=== PATIENT | male | born 1935 | race Caucasian/White ===

== ENCOUNTER 2017-08-06 13:44 | Observation (INO) | payer MEDICARE, MEDICAID ==
[2017-08-06] MEDS ORDERED: Sodium Chloride 0.9% 10 ML Syringe FLUSH PRN (14:19)
--- NOTE | 2017-08-06 14:19 | EDM.PDOC ---
ED HPI GENERAL MEDICAL PROBLEM - General Chief Complaint: General Stated Complaint: ER Time Seen by Provider: 08/06/17 14:10 Source of Information: Reports: Patient, EMS Notes Reviewed, RN, RN Notes Reviewed History Limitations: Reports: No Limitations - History of Present Illness INITIAL COMMENTS - FREE TEXT/NARRATIVE: Patient is brought to the ED at [facility] via EMS complaining of weakness. Patient states he fell at home last Thursday and has been feeing weak every since. He did sustain a right ankle sprain from the fall. He also is complaining of left chest and shoulder pain that he thinks is from the fall as well. He denies any LOC. No head injury or trauma. Patient denies any neck or back pain. Onset Date: 08/02/17 Right Ankle Pain Score (Numeric/FACES): 8 - Related Data Allergies Allergy/AdvReac Type Severity Reaction Status Date / Time No Known Allergies Allergy Verified 08/06/17 14:58 ED ROS GENERAL - Review of Systems Review Of Systems: See Below Constitutional: Reports: Weakness. Denies: Fever, Chills Respiratory: Denies: Shortness of Breath, Cough Cardiovascular: Denies: Chest Pain, Palpitations GI/Abdominal: Denies: Abdominal Pain, Nausea, Vomiting Musculoskeletal: Reports: Shoulder Pain, Muscle Pain, Muscle Stiffness. Denies : Neck Pain, Back Pain Neurological: Denies: Dizziness, Headache, Numbness, Paresthesia, Tingling ED EXAM, GENERAL - Physical Exam Exam: See Below Exam Limited By: No Limitations General Appearance: Alert, No Apparent Distress Eye Exam: Bilateral Eye: EOMI, Normal Inspection, PERRL Head: Atraumatic, Normocephalic Neck: Supple Respiratory/Chest: No Respiratory Distress, Decreased Breath Sounds (LLL) Cardiovascular: Normal Peripheral Pulses, Regular Rate, Rhythm Peripheral Pulses: 2+: Radial (L), Radial (R) GI/Abdominal: Normal Bowel Sounds, Soft, Non-Tender Back Exam: Normal Inspection Extremities: Normal Inspection, Pedal Edema (chronic), Limited Range of Motion ( left shoulder due to pain) Neurological: Alert, Oriented Skin Exam: Warm, Dry, Intact Course - Vital Signs Last Recorded V/S: Last Vital Signs Temp 35.8 C 08/06/17 13:55 Pulse 89 08/06/17 13:55 Resp 20 08/06/17 13:55 BP 142/81 H 08/06/17 13:55 Pulse Ox 92 L 08/06/17 13:55 - Orders/Labs/Meds Orders: Active Orders 24 hr Category Date Time Status Admission Status [Patient Status] [ADT] Routine ADT 08/06/17 15:42 Ordered Chest 2V [CR] Stat Exams 08/06/17 14:17 Taken Shoulder Comp Lt [CR] Stat Exams 08/06/17 14:16 Ordered PRO B-TYPE NATRIUR PEPT,BNPPRO [CHEM] Stat Lab 08/06/17 15:40 Ordered Sodium Chloride 0.9% [Saline Flush] Med 08/06/17 14:19 Active 10 ml FLUSH ASDIRECTED PRN Peripheral IV Insertion Adult [OM.PC] Routine Oth 08/06/17 14:19 Ordered Medication Orders Sodium Chloride (Saline Flush) 10 ml FLUSH ASDIRECTED PRN PRN Reason: Keep Vein Open Labs: Laboratory Tests 08/06/17 08/06/17 Range/Units 14:56 14:56 WBC 7.5 (4.0-10.0) x10^3/uL RBC 4.60 (4.5-6.0) x10^6/uL Hgb 14.4 (14.0-18.0) g/dL Hct 44.0 (40.0-52.0) % MCV 95.7 H (78.0-93.0) fL MCH 31.3 (26.0-32.0) pg MCHC 32.7 (32.0-36.0) g/dL RDW Coeff of Shivani 14.7 (10.0-15.0) % Plt Count 157 (130-400) x10^3/uL Neut % (Auto) 73.2 (50.0-80.0) % Lymph % (Auto) 17.2 L (25.0-50.0) % [place] % (Auto) 7.3 (2.0-11.0) % Eos % (Auto) 1.9 (0.0-4.0) % Baso % (Auto) 0.4 (0.2-1.2) % Sodium 139 (136-145) mmol/L Potassium 4.4 (3.5-5.1) mmol/L Chloride 102 (98-107) mmol/L Carbon Dioxide 26 (21-32) mmol/L Anion Gap 15.4 BUN 28 H (7-18) mg/dL Creatinine 1.9 H (0.70-1.30) mg/dL Est Cr Clr Drug Dosing 36.05 mL/min Estimated GFR (MDRD) 34 Glucose 279 H (74-106) mg/dL Calcium 8.9 (8.5-10.1) mg/dL Meds: Medications Generic Name Dose Route Start Last Admin Trade Name Freq PRN Reason Stop Dose Admin Sodium Chloride 10 ml 08/06/17 14:19 Saline Flush FLUSH ASDIRECTED PRN Keep Vein Open Departure - Departure Time of Disposition: 15:46 Disposition: Refer to Observation Condition: Fair Clinical Impression: Weakness, Hyperglycemia Clavicle fracture Qualifiers: Encounter type: initial encounter Clavicle location: unspecified part of clavicle Fracture type: closed Fracture alignment: nondisplaced Laterality: left Qualified Code(s): S42.002A - Fracture of unspecified part of left clavicle , initial encounter for closed fracture - Discharge Information - Problem List Review Problem List Initiated/Reviewed/Updated: Yes - My Orders Last 24 Hours: My Active Orders 08/06/17 14:16 Shoulder Comp Lt [CR] Stat 08/06/17 14:17 Chest 2V [CR] Stat 08/06/17 14:19 Sodium Chloride 0.9% [Saline Flush] 10 ml FLUSH ASDIRECTED PRN Peripheral IV Insertion Adult [OM.PC] Routine 08/06/17 15:40 PRO B-TYPE NATRIUR PEPT,BNPPRO [CHEM] Stat 08/06/17 15:42 Admission Status [Patient Status] [ADT] Routine - Assessment/Plan Admission H&P: Please use this note as an admission H&P Last 24 Hours: My Active Orders 08/06/17 14:16 Shoulder Comp Lt [CR] Stat 08/06/17 14:17 Chest 2V [CR] Stat 08/06/17 14:19 Sodium Chloride 0.9% [Saline Flush] 10 ml FLUSH ASDIRECTED PRN Peripheral IV Insertion Adult [OM.PC] Routine 08/06/17 15:40 PRO B-TYPE NATRIUR PEPT,BNPPRO [CHEM] Stat 08/06/17 15:42 Admission Status [Patient Status] [ADT] Routine Assessment:: Weakness Hyperglycemia Clavicle fracture Plan: Admit obs
[2017-08-06] MEDS ORDERED: Ondansetron 4 MG Tab.DIS PO PRN (16:07)
[2017-08-06] MEDS: Lactated Ringers 1,000 ML IV SCH (16:29)
--- NOTE | 2017-08-06 18:49 | PCM.HP ---
H&P History of Present Illness - General Date of Service: 08/06/17 Admit Problem/Dx: Admission Diagnosis/Problem Admission Diagnosis/Problem Weakness Hyperglycemia Left Clavicle Fracture Source of Information: Patient, EMS Notes Reviewed, Old Records, RN, RN Notes Reviewed History Limitations: Reports: No Limitations - History of Present Illness Initial Comments - Free Text/Narative: 82-year-old male patient was brought to the emergency room at [facility] earlier today by the ambulance with a chief complaint of weakness. According to the EMS crew, the patient was unable to get himself up off the couch or up from a chair, therefore they were called. The patient states that he had a fall at home last Thursday. The patient does not remember the exact mechanism of injury. The patient states that he sustained a twisting injury to the right lower ankle. The patient states that he also fell onto his left shoulder during the fall. The patient denied any head injury or trauma. The patient remembers the entire incident. The patient currently denies any chest pain or short of breath. The patient denies any abdominal pain. The patient denies any neck or back pain. The patient continues to complain of right ankle pain. The patient was seen by me in clinic 2 days ago for his complaint of right ankle pain. The patient did not complain of any shoulder pain at that time. I did obtain an x-ray of the right ankle which was negative for any fracture or dislocation. The patient was diagnosed with a right ankle sprain and was sent home from the clinic. The patient states since then he has felt more and more weak. The patient has a history of poor compliance with his diabetes regimen. The patient does get home health services with his medications and also for assessment of a healing left anterior raymond venous stasis ulcer. The patient currently lives alone in an apartment. There has been questions in the past whether or not the patient should be admitted to a correction. During the patient's emergency room visit, the patient's blood sugar was elevated in the 260s. The patient had a left shoulder x-ray which showed a possible nondisplaced fracture of the clavicle. Symptom Onset Date: 08/02/17 Duration of Symptoms: Reports: Intermittent Location: Reports: Upper Extremity, Left Quality: Reports: Dull Severity: Mild Improves with: Reports: Rest Worsens with: Reports: Movement Context: Reports: Trauma Associated Symptoms: Reports: No Other Symptoms Right Ankle Pain Score (Numeric/FACES): 8 - Related Data Allergies/Adverse Reactions: Allergies Allergy/AdvReac Type Severity Reaction Status Date / Time aspirin Allergy Other Verified 08/06/17 16:12 naproxen [From Aleve] Allergy Difficulty Verified 08/06/17 16:12 Breathing Home Medications: Home Meds Carvedilol [Coreg] 6.25 mg PO BID 08/06/17 [History] Furosemide [Lasix] 20 mg PO BID 08/06/17 [History] Ibuprofen 200 mg PO Q4H PRN 08/06/17 [History] Insulin Aspart [NovoLOG] 18 unit SQ BID 08/06/17 [History] Insulin Glargine,Hum.Rec.Anlog [[place] Solostar] 81 unit SQ BEDTIME 08/06/17 [ History] Lisinopril 20 mg PO DAILY 08/06/17 [History] Sertraline [Zoloft] 25 mg PO DAILY 08/06/17 [History] Past Medical History Cardiovascular History: Reports: CAD, High Cholesterol, Hypertension Genitourinary History: Reports: Renal Disease Psychiatric History: Reports: Dementia, Depression Endocrine/Metabolic History: Reports: Diabetes, Type II, Obesity/BMI 30+ Oncologic (Cancer) History: Reports: Squamous Cell Carcinoma Social & Family History - Family History Family Medical History: Noncontributory - Tobacco Use Smoking Status *Q: Never Smoker Second Hand Smoke Exposure: No - Recreational Drug Use Recreational Drug Use: No H&P Review of Systems - Review of Systems: Review Of Systems: See Below General: Reports: Weakness. Denies: Fever, Chills Pulmonary: Denies: Shortness of Breath, Cough Cardiovascular: Denies: Chest Pain, Palpitations Gastrointestinal: Denies: Abdominal Pain, Nausea, Vomiting Musculoskeletal: Reports: Shoulder Pain, Foot Pain, Joint Swelling, Muscle Pain , Muscle Stiffness Skin: Reports: Wound (Left anterior raymond) Neurological: Denies: Dizziness, Headache, Numbness, Paresthesia, Tingling Exam - Exam Exam: See Below - Vital Signs Vital Signs: Last Vital Signs Temp 36.3 C 08/06/17 16:07 Pulse 73 08/06/17 16:07 Resp 16 08/06/17 16:07 BP 150/67 H 08/06/17 16:07 Pulse Ox 93 L 08/06/17 16:07 Weight: 123.06 kg - Exam Quality Assessment: Skin Breakdown General: Alert, Oriented, Cooperative Lungs: Clear to Auscultation, Normal Respiratory Effort Cardiovascular: Regular Rate, Regular Rhythm GI/Abdominal Exam: Normal Bowel Sounds, Soft, Non-Tender Back Exam: Normal Inspection Extremities: Pedal Edema (bilateral), Joint Swelling (Right ankle), Redness ( Left anterior raymond) Skin: Warm, Dry, Wound (Left anterior raymond venous statis ulcer; healing well; area scabbed; no open areas; no drainage) Neuro Extensive - Mental Status: Alert, Oriented x3 - Patient Data Lab Results Last 24 hrs: Laboratory Results - last 24 hr 08/06/17 08/06/17 08/06/17 Range/Units 14:56 14:56 14:56 WBC 7.5 (4.0-10.0) x10^3/uL RBC 4.60 (4.5-6.0) x10^6/uL Hgb 14.4 (14.0-18.0) g/dL Hct 44.0 (40.0-52.0) % MCV 95.7 H (78.0-93.0) fL MCH 31.3 (26.0-32.0) pg MCHC 32.7 (32.0-36.0) g/dL RDW Coeff of Shivani 14.7 (10.0-15.0) % Plt Count 157 (130-400) x10^3/uL Neut % (Auto) 73.2 (50.0-80.0) % Lymph % (Auto) 17.2 L (25.0-50.0) % [place] % (Auto) 7.3 (2.0-11.0) % Eos % (Auto) 1.9 (0.0-4.0) % Baso % (Auto) 0.4 (0.2-1.2) % Sodium 139 (136-145) mmol/L Potassium 4.4 (3.5-5.1) mmol/L Chloride 102 (98-107) mmol/L Carbon Dioxide 26 (21-32) mmol/L Anion Gap 15.4 BUN 28 H (7-18) mg/dL Creatinine 1.9 H (0.70-1.30) mg/dL Est Cr Clr Drug Dosing 36.05 mL/min Estimated GFR (MDRD) 34 Glucose 279 H (74-106) mg/dL POC Glucose (74-106) mg/dL Calcium 8.9 (8.5-10.1) mg/dL NT-Pro-B Natriuret Pep 153 (<=450) pg/mL 08/06/17 Range/Units 17:17 WBC (4.0-10.0) x10^3/uL RBC (4.5-6.0) x10^6/uL Hgb (14.0-18.0) g/dL Hct (40.0-52.0) % MCV (78.0-93.0) fL MCH (26.0-32.0) pg MCHC (32.0-36.0) g/dL RDW Coeff of Shivani (10.0-15.0) % Plt Count (130-400) x10^3/uL Neut % (Auto) (50.0-80.0) % Lymph % (Auto) (25.0-50.0) % [place] % (Auto) (2.0-11.0) % Eos % (Auto) (0.0-4.0) % Baso % (Auto) (0.2-1.2) % Sodium (136-145) mmol/L Potassium (3.5-5.1) mmol/L Chloride (98-107) mmol/L Carbon Dioxide (21-32) mmol/L Anion Gap BUN (7-18) mg/dL Creatinine (0.70-1.30) mg/dL Est Cr Clr Drug Dosing mL/min Estimated GFR (MDRD) Glucose (74-106) mg/dL POC Glucose 235 H (74-106) mg/dL Calcium (8.5-10.1) mg/dL NT-Pro-B Natriuret Pep (<=450) pg/mL Result Diagrams: 08/06/17 14:56 08/06/17 14:56 *Q Meaningful Use (ADM) - VTE *Q VTE Mechanical Contraindications *Q: At Risk for Falls - Problem List (1) Weakness SNOMED Code(s): 31275461 ICD Code: R53.1 - WEAKNESS Status: Acute Priority: Medium Current Visit : Yes (2) Clavicle fracture SNOMED Code(s): 20115701 ICD Code: S42.009A - FRACTURE OF UNSP PART OF UNSP CLAVICLE, INIT FOR CLOS FX Status: Acute Priority: Medium Current Visit: Yes Qualifiers: Encounter type: initial encounter Clavicle location: unspecified part of clavicle Fracture type: closed Fracture alignment: nondisplaced Laterality : left Qualified Code(s): S42.002A - Fracture of unspecified part of left clavicle, initial encounter for closed fracture (3) Hyperglycemia due to type 2 diabetes mellitus SNOMED Code(s): 616044648393365, 802514722483694 ICD Code: E11.65 - TYPE 2 DIABETES MELLITUS WITH HYPERGLYCEMIA Status: Chronic Priority: Medium Current Visit: Yes Qualifiers: Diabetes mellitus exterminator helper insulin use: with exterminator helper use Qualified Code( s): E11.65 - Type 2 diabetes mellitus with hyperglycemia; Z79.4 - intermediate accountant ( current) use of insulin (4) Coronary artery disease SNOMED Code(s): 22212102 ICD Code: I25.10 - ATHSCL HEART DISEASE OF [place] CORONARY ARTERY W/O ANG PCTRS Status: Chronic Priority: Medium Current Visit: No Qualifiers: Coronary Disease-Associated Artery/Lesion type: [place] artery [place] vs. transplanted heart: [place] heart Associated angina: without angina Qualified Code(s): I25.10 - Atherosclerotic heart disease of [place] coronary artery without angina pectoris (5) Essential hypertension SNOMED Code(s): 61494608 ICD Code: I10 - ESSENTIAL (PRIMARY) HYPERTENSION Status: Chronic Priority : Low Current Visit: No (6) Dementia SNOMED Code(s): 74917935 ICD Code: F03.90 - UNSPECIFIED DEMENTIA WITHOUT BEHAVIORAL DISTURBANCE Status: Chronic Priority: Medium Current Visit: No Qualifiers: Dementia type: unspecified type Dementia behavioral disturbance: without behavioral disturbance Qualified Code(s): F03.90 - Unspecified dementia without behavioral disturbance (7) Chronic kidney disease (CKD), stage III (moderate) SNOMED Code(s): 641054005 ICD Code: N18.3 - CHRONIC KIDNEY DISEASE, STAGE 3 (MODERATE) Status: Chronic Priority: Low Current Visit: No (8) Major depressive disorder SNOMED Code(s): 272786464 ICD Code: F32.9 - MAJOR DEPRESSIVE DISORDER, SINGLE EPISODE, UNSPECIFIED Status: Acute Current Visit: Yes Qualifiers: Major depression recurrence: recurrent Active/Remission status: currently active Major depression episode severity: mild Qualified Code(s): F33.0 - Major depressive disorder, recurrent, mild Problem List Initiated/Reviewed/Updated: Yes Orders Last 24hrs: Active Orders 24 hr Category Date Time Status Patient Status [ADT] Routine ADT 08/06/17 16:07 Active Accu Check [Blood Glucose Check, Bedside] [RC] TIDMEALS Care 08/06/17 17:33 Active Ambulate [RC] 08, Care 08/06/17 16:07 Active Height and Weight [RC] .PRN Care 08/06/17 16:07 Active Intake and Output [RC] 06,18 Care 08/06/17 16:08 Active May Shower [RC] , Care 08/06/17 16:07 Active Oxygen Therapy [RC] .PRN Care 08/06/17 16:07 Active VTE/DVT Education [RC] .PRN Care 08/06/17 16:07 Active Vital Signs [RC] 02,06,10,14,18,22 Care 08/06/17 16:07 Active Consult to Case Management [CONS] Routine Cons 08/06/17 16:07 Active OT Evaluation and Treatment [CONS] Routine Cons 08/06/17 16:07 Active PT Evaluation and Treatment [CONS] Routine Cons 08/06/17 16:07 Active [employer] Diet [DIET] Diet 08/06/17 Breakfast Active Chest 2V [CR] Stat Exams 08/06/17 14:17 Taken Shoulder Comp Lt [CR] Stat Exams 08/06/17 14:16 Taken Acetaminophen [Tylenol] Med 08/06/17 16:07 Active 650 mg PO Q4H PRN Carvedilol [Coreg] Med 08/06/17 20:00 Active 6.25 mg PO BID Furosemide [Lasix] Med 08/07/17 08:00 Active 20 mg PO BIDDIURETIC Insulin Aspart [NovoLOG] Med 08/06/17 20:00 Pending 18 unit SUBCUT BID Insulin Glargine,Hum.Rec.Anlog [[place] Solostar] Med 08/06/17 20:00 Pending 81 unit SQ BEDTIME Lactated Ringers [Ringers, Lactated] 1,000 ml Med 08/06/17 16:15 Active IV ASDIRECTED Lisinopril [Prinivil] Med 08/07/17 08:00 Active 20 mg PO DAILY Ondansetron [Zofran ODT] Med 08/06/17 16:07 Active 4 mg PO Q6H PRN Sertraline [Zoloft] Med 08/07/17 08:00 Active 25 mg PO DAILY Sodium Chloride 0.9% [Saline Flush] Med 08/06/17 14:19 Active 10 ml FLUSH ASDIRECTED PRN DME for Inpatients [OM.PC] Routine Oth 08/06/17 17:53 Ordered Peripheral IV Insertion Adult [OM.PC] Routine Oth 08/06/17 14:19 Ordered Resuscitation Status Routine Resus Stat 08/06/17 17:32 Ordered Medication Orders Acetaminophen (Tylenol) 650 mg PO Q4H PRN PRN Reason: Pain (Mild 1-3)/fever Carvedilol (Coreg) 6.25 mg PO BID DIONISIO Furosemide (Lasix) 20 mg PO BIDDIURETIC DIONISIO Lactated Ringer's (Ringers, Lactated) 1,000 mls @ 75 mls/hr IV ASDIRECTED DIONISIO Last Admin: 08/06/17 16:29 Dose: 75 mls/hr Insulin Aspart (Novolog) 18 unit SUBCUT BID DIONISIO Lisinopril (Prinivil) 20 mg PO DAILY DIONISIO Non-Formulary Medication (Insulin Glargine,Hum.Rec.Anlog [Justo Palma]) 81 unit SQ BEDTIME DIONISIO Ondansetron HCl (Zofran Odt) 4 mg PO Q6H PRN PRN Reason: nausea, able to take PO Sertraline HCl (Zoloft) 25 mg PO DAILY DIONISIO Sodium Chloride (Saline Flush) 10 ml FLUSH ASDIRECTED PRN PRN Reason: Keep Vein Open Assessment/Plan Comment:: 82-year-old male patient with a past medical history of coronary artery disease , uncontrolled diabetes, dementia, chronic kidney disease, major depressive disorder is admitted to the observation unit at [facility] with a diagnosis of weakness, left clavicle fracture, and hyperglycemia. We will continue the patient on his current medications from home for his hyperglycemia. We will check blood sugars 3 times a day. Patient will be placed on an ADA diet. We will have physical and occupational therapy see this patient for his weakness and also ADLs. I do anticipate the patient to stay less than 48 hours but it also depends upon physical and occupational therapy assessments. The patient may need longer hospital stay if he needs a considerable amount of rehabilitation with therapy. The patient will be placed in a sling for his left clavicle fracture. Will gently rehydrate patient with IVF's for now. 1. Weakness - PT/OT referrals; encourage ambulation 2. Left Clavicle Fracture - left sling; PT/OT 3. Hyperglycemia - continue home insulins; ADA diet; diabetic teaching; accu checks TID 4. CAD - ADA diet; continue Coreg and Lisinopril; weight loss 5. DM - as above 6. Dementia - this is mild, currently not on any medications; monitor; possible cognitive eval with OT if warranted 7. CKD, stage III - no NSAIDS; continue Lisinopril; adequate hydration with IVF for now; control blood sugars 8. Major Depressive Disorder - continue Zoloft; possible cognitive eval per OT if warranted Patient wishes to be a no code. DVT prophylaxis risk is low so we'll encourage early ambulation. I do anticipate the patient to be here less than 48 hours, however it depends upon physical and occupational therapy evaluations. The patient does wish to be transferred to a higher level of care should the need arise. The left clavicle fracture is not all that overly impressive, therefore I do not feel the patient needs orthopedic referral at this time. We will continue to monitor.
[2017-08-06] MEDS ORDERED: Insulin Regular, Human 100 Units/ML 3 ML Vial SUBCUT SCH (20:00)
[2017-08-06] MEDS: Insulin Detemir 100 Units/ML 3 ML Pen SUBCUT SCH (20:08)
[2017-08-06] MEDS: Carvedilol 6.25 MG Tab PO SCH (20:11)
[2017-08-06] MEDS: Insulin Aspart 100 Units/ML 3 ML Pen SUBCUT SCH (20:16)
[2017-08-06] MEDS: Acetaminophen 325 MG Tab PO PRN (20:20)
[2017-08-07] MEDS: Lactated Ringers 1,000 ML IV SCH ×2 (05:48→19:10)
[2017-08-07] MEDS: Sertraline 25 MG Tab PO SCH (07:33)
[2017-08-07] MEDS: Carvedilol 6.25 MG Tab PO SCH ×2 (07:33→20:15)
[2017-08-07] MEDS: Lisinopril 20 MG Tab PO SCH (07:33)
[2017-08-07] MEDS: Furosemide 20 MG Tab PO SCH ×2 (07:33→15:54)
[2017-08-07] MEDS: Insulin Aspart 100 Units/ML 3 ML Pen SUBCUT SCH ×2 (07:38→20:21)
[2017-08-07] MEDS: Insulin Detemir 100 Units/ML 3 ML Pen SUBCUT SCH ×2 (07:40→20:19)
--- NOTE | 2017-08-07 13:40 | PCM.PN ---
- General Info Date of Service: 08/07/17 Admission Dx/Problem (Free Text): Admission Diagnosis/Problem Admission Diagnosis/Problem Weakness Hyperglycemia Left Clavicle Fracture Subjective Update: Patient offers no specific complaints today. He has minimal pain of the left shoulder. He denies any right foot or right ankle pain.the patient states his appetite has been good. The patient denies any problems with urination or bowel movements. His pain is well controlled. The patient states he feels very weak in the legs. Otherwise no new concerns. Functional Status: Reports: Pain Controlled, Tolerating Diet, Ambulating, Urinating Pain Score: 0 - Review of Systems General: Reports: Weakness, Fatigue. Denies: Fever, Chills Pulmonary: Denies: Shortness of Breath, Cough Cardiovascular: Denies: Chest Pain, Palpitations Gastrointestinal: Denies: Abdominal Pain, Nausea, Vomiting Musculoskeletal: Reports: Shoulder Pain (Left) Skin: Reports: Other (left raymond) Neurological: Denies: Dizziness, Headache - Patient Data Vitals - Most Recent: Last Vital Signs Temp 36.6 C 08/07/17 10:00 Pulse 86 08/07/17 10:00 Resp 16 08/07/17 10:00 BP 144/82 H 08/07/17 10:00 Pulse Ox 92 L 08/07/17 10:00 Weight - Most Recent: 123.06 kg I&O - Last 24 Hours: Intake & Output 08/06/17 08/07/17 08/07/17 22:59 06:59 14:59 Intake Total 340 350 420 Output Total 1200 100 Balance 340 -850 320 Lab Results Last 24 Hours: Laboratory Results - last 24 hr 08/06/17 08/06/17 08/06/17 Range/Units 14:56 14:56 14:56 WBC 7.5 (4.0-10.0) x10^3/uL RBC 4.60 (4.5-6.0) x10^6/uL Hgb 14.4 (14.0-18.0) g/dL Hct 44.0 (40.0-52.0) % MCV 95.7 H (78.0-93.0) fL MCH 31.3 (26.0-32.0) pg MCHC 32.7 (32.0-36.0) g/dL RDW Coeff of Shivani 14.7 (10.0-15.0) % Plt Count 157 (130-400) x10^3/uL Neut % (Auto) 73.2 (50.0-80.0) % Lymph % (Auto) 17.2 L (25.0-50.0) % [place] % (Auto) 7.3 (2.0-11.0) % Eos % (Auto) 1.9 (0.0-4.0) % Baso % (Auto) 0.4 (0.2-1.2) % Sodium 139 (136-145) mmol/L Potassium 4.4 (3.5-5.1) mmol/L Chloride 102 (98-107) mmol/L Carbon Dioxide 26 (21-32) mmol/L Anion Gap 15.4 BUN 28 H (7-18) mg/dL Creatinine 1.9 H (0.70-1.30) mg/dL Est Cr Clr Drug Dosing 36.05 mL/min Estimated GFR (MDRD) 34 Glucose 279 H (74-106) mg/dL POC Glucose (74-106) mg/dL Calcium 8.9 (8.5-10.1) mg/dL NT-Pro-B Natriuret Pep 153 (<=450) pg/mL 08/06/17 08/07/17 08/07/17 Range/Units 17:17 06:29 06:29 WBC 6.7 (4.0-10.0) x10^3/uL RBC 4.65 (4.5-6.0) x10^6/uL Hgb 14.6 (14.0-18.0) g/dL Hct 44.4 (40.0-52.0) % MCV 95.5 H (78.0-93.0) fL MCH 31.4 (26.0-32.0) pg MCHC 32.9 (32.0-36.0) g/dL RDW Coeff of Shivani 14.7 (10.0-15.0) % Plt Count 145 (130-400) x10^3/uL Neut % (Auto) 63.9 (50.0-80.0) % Lymph % (Auto) 25.7 (25.0-50.0) % [place] % (Auto) 8.1 (2.0-11.0) % Eos % (Auto) 1.9 (0.0-4.0) % Baso % (Auto) 0.4 (0.2-1.2) % Sodium 140 (136-145) mmol/L Potassium 4.0 (3.5-5.1) mmol/L Chloride 105 (98-107) mmol/L Carbon Dioxide 26 (21-32) mmol/L Anion Gap 13.0 BUN 25 H (7-18) mg/dL Creatinine 1.5 H (0.70-1.30) mg/dL Est Cr Clr Drug Dosing 45.67 mL/min Estimated GFR (MDRD) 45 Glucose 132 H (74-106) mg/dL POC Glucose 235 H (74-106) mg/dL Calcium 8.6 (8.5-10.1) mg/dL NT-Pro-B Natriuret Pep (<=450) pg/mL 08/07/17 08/07/17 Range/Units 07:28 11:37 WBC (4.0-10.0) x10^3/uL RBC (4.5-6.0) x10^6/uL Hgb (14.0-18.0) g/dL Hct (40.0-52.0) % MCV (78.0-93.0) fL MCH (26.0-32.0) pg MCHC (32.0-36.0) g/dL RDW Coeff of Shivani (10.0-15.0) % Plt Count (130-400) x10^3/uL Neut % (Auto) (50.0-80.0) % Lymph % (Auto) (25.0-50.0) % [place] % (Auto) (2.0-11.0) % Eos % (Auto) (0.0-4.0) % Baso % (Auto) (0.2-1.2) % Sodium (136-145) mmol/L Potassium (3.5-5.1) mmol/L Chloride (98-107) mmol/L Carbon Dioxide (21-32) mmol/L Anion Gap BUN (7-18) mg/dL Creatinine (0.70-1.30) mg/dL Est Cr Clr Drug Dosing mL/min Estimated GFR (MDRD) Glucose (74-106) mg/dL POC Glucose 132 H 202 H (74-106) mg/dL Calcium (8.5-10.1) mg/dL NT-Pro-B Natriuret Pep (<=450) pg/mL Med Orders - Current: Current Medications Acetaminophen (Tylenol) 650 mg PO Q4H PRN PRN Reason: Pain (Mild 1-3)/fever Last Admin: 08/06/17 20:20 Dose: 650 mg Carvedilol (Coreg) 6.25 mg PO BID [facility] Last Admin: 08/07/17 07:33 Dose: 6.25 mg Furosemide (Lasix) 20 mg PO BIDDIURETIC [facility] Last Admin: 08/07/17 07:33 Dose: 20 mg Lactated Ringer's (Ringers, Lactated) 1,000 mls @ 75 mls/hr IV ASDIRECTED [facility] Last Admin: 08/07/17 05:48 Dose: 75 mls/hr Insulin Aspart (Novolog) 18 unit SUBCUT BID [facility] Last Admin: 08/07/17 07:38 Dose: 18 units Insulin Detemir (Levemir) 40 unit SUBCUT BEDTIME [facility] Last Admin: 08/06/17 20:08 Dose: 40 units Insulin Detemir (Levemir) 41 unit SUBCUT QAM [facility] Last Admin: 08/07/17 07:40 Dose: 41 units Lisinopril (Prinivil) 20 mg PO DAILY [facility] Last Admin: 08/07/17 07:33 Dose: 20 mg Ondansetron HCl (Zofran Odt) 4 mg PO Q6H PRN PRN Reason: nausea, able to take PO Sertraline HCl (Zoloft) 25 mg PO DAILY [facility] Last Admin: 08/07/17 07:33 Dose: 25 mg Sodium Chloride (Saline Flush) 10 ml FLUSH ASDIRECTED PRN PRN Reason: Keep Vein Open Discontinued Medications Insulin Human Regular (Humulin R) 0 unit SUBCUT TID [facility]; Protocol - Exam Quality Assessment: DVT Prophylaxis, Skin Breakdown General: Alert, Oriented, Cooperative, No Acute Distress Lungs: Clear to Auscultation, Normal Respiratory Effort, Decreased Breath Sounds Cardiovascular: Regular Rate, Regular Rhythm GI/Abdominal Exam: Normal Bowel Sounds, Soft, Non-Tender Extremities: Pedal Edema (trace to +1 bilateral; venous stasis present) Peripheral Pulses: 1+: Posterior Tibial (L), Posterior Tibial (R), Dorsalis Pedis (L), Dorsalis Pedis (R) Skin: Warm, Dry, Intact, Other (healing venous stasis ulcer left anterior raymond; scabbs present; no evidence of infection; no drainage; areas healing well) Neurological: No New Focal Deficit - Problem List & Annotations (1) Weakness SNOMED Code(s): 95380462 Code(s): R53.1 - WEAKNESS Status: Acute Priority: Medium Current Visit : Yes (2) Clavicle fracture SNOMED Code(s): 52258999 Code(s): S42.009A - FRACTURE OF UNSP PART OF UNSP CLAVICLE, INIT FOR CLOS FX Status: Acute Priority: Medium Current Visit: Yes Qualifiers: Encounter type: initial encounter Clavicle location: unspecified part of clavicle Fracture type: closed Fracture alignment: nondisplaced Laterality : left Qualified Code(s): S42.002A - Fracture of unspecified part of left clavicle, initial encounter for closed fracture (3) Hyperglycemia due to type 2 diabetes mellitus SNOMED Code(s): 758336220259565, 125417226989500 Code(s): E11.65 - TYPE 2 DIABETES MELLITUS WITH HYPERGLYCEMIA Status: Chronic Priority: Medium Current Visit: Yes Qualifiers: Diabetes mellitus nursing home insulin use: with client liaison use Qualified Code( s): E11.65 - Type 2 diabetes mellitus with hyperglycemia; Z79.4 - terminal clerk ( current) use of insulin (4) Coronary artery disease SNOMED Code(s): 15301865 Code(s): I25.10 - ATHSCL HEART DISEASE OF [place] CORONARY ARTERY W/O ANG PCTRS Status: Chronic Priority: Medium Current Visit: No Qualifiers: Coronary Disease-Associated Artery/Lesion type: [place] artery [place] vs. transplanted heart: [place] heart Associated angina: without angina Qualified Code(s): I25.10 - Atherosclerotic heart disease of [place] coronary artery without angina pectoris (5) Essential hypertension SNOMED Code(s): 59761592 Code(s): I10 - ESSENTIAL (PRIMARY) HYPERTENSION Status: Chronic Priority : Low Current Visit: No (6) Dementia SNOMED Code(s): 43988312 Code(s): F03.90 - UNSPECIFIED DEMENTIA WITHOUT BEHAVIORAL DISTURBANCE Status: Chronic Priority: Medium Current Visit: No Qualifiers: Dementia type: unspecified type Dementia behavioral disturbance: without behavioral disturbance Qualified Code(s): F03.90 - Unspecified dementia without behavioral disturbance (7) Chronic kidney disease (CKD), stage III (moderate) SNOMED Code(s): 492616825 Code(s): N18.3 - CHRONIC KIDNEY DISEASE, STAGE 3 (MODERATE) Status: Chronic Priority: Low Current Visit: No (8) Major depressive disorder SNOMED Code(s): 637304566 Code(s): F32.9 - MAJOR DEPRESSIVE DISORDER, SINGLE EPISODE, UNSPECIFIED Status: Acute Current Visit: Yes Qualifiers: Major depression recurrence: recurrent Active/Remission status: currently active Major depression episode severity: mild Qualified Code(s): F33.0 - Major depressive disorder, recurrent, mild - Problem List Review Problem List Initiated/Reviewed/Updated: Yes - My Orders Last 24 Hours: My Active Orders 08/06/17 14:16 Shoulder Comp Lt [CR] Stat 08/06/17 14:17 Chest 2V [CR] Stat 08/06/17 14:19 Sodium Chloride 0.9% [Saline Flush] 10 ml FLUSH ASDIRECTED PRN Peripheral IV Insertion Adult [OM.PC] Routine 08/06/17 16:07 Patient Status [ADT] Routine Ambulate [RC] 08,20 Height and Weight [RC] .PRN May Shower [RC] 08,20 Oxygen Therapy [RC] .PRN VTE/DVT Education [RC] .PRN Vital Signs [RC] 02,06,10,14,18,22 Consult to Case Management [CONS] Routine OT Evaluation and Treatment [CONS] Routine PT Evaluation and Treatment [CONS] Routine Acetaminophen [Tylenol] 650 mg PO Q4H PRN Ondansetron [Zofran ODT] 4 mg PO Q6H PRN 08/06/17 16:08 Intake and Output [RC] 06,18 08/06/17 16:15 Lactated Ringers [Ringers, Lactated] 1,000 ml IV ASDIRECTED 08/06/17 17:32 Resuscitation Status Routine 08/06/17 17:33 Accu Check [Blood Glucose Check, Bedside] [RC] 07,11,1730 08/06/17 17:53 DME for Inpatients [OM.PC] Routine 08/06/17 20:00 Carvedilol [Coreg] 6.25 mg PO BID Insulin Aspart [NovoLOG] 18 unit SUBCUT BID Insulin Detemir [Levemir] 40 unit SUBCUT BEDTIME 08/07/17 08:00 Furosemide [Lasix] 20 mg PO BIDDIURETIC Insulin Detemir [Levemir] 41 unit SUBCUT QAM Lisinopril [Prinivil] 20 mg PO DAILY Sertraline [Zoloft] 25 mg PO DAILY - Assessment Assessment:: Weakness Hyperglycemia Left Clavicle fracture - Plan Plan:: 82-year-old male patient with a past medical history of coronary artery disease , uncontrolled diabetes, dementia, chronic kidney disease, major depressive disorder is admitted to the observation unit at [facility] with a diagnosis of weakness, left clavicle fracture, and hyperglycemia. We will continue the patient on his current medications from home for his hyperglycemia. We will check blood sugars 3 times a day. Patient will be placed on an ADA diet. Awaiting occupational therapy eval. Physical therapy eval completed. Physical therapy would like to rehab the patient on swing bed for one wekk. The patient may need longer hospital stay if he needs a considerable amount of rehabilitation with therapy. The patient will be placed in a sling for his left clavicle fracture. Will gently rehydrate patient with IVF's for now. 1. Weakness - rehab with PT/OT; encourage ambulation 2. Left Clavicle Fracture - left sling; PT/OT 3. Hyperglycemia - continue home insulins; ADA diet; diabetic teaching; accu checks TID 4. CAD - ADA diet; continue Coreg and Lisinopril; weight loss 5. DM - as above 6. Dementia - this is mild, currently not on any medications; monitor; possible cognitive eval with OT if warranted 7. CKD, stage III - no NSAIDS; continue Lisinopril; adequate hydration with IVF for now; control blood sugars 8. Major Depressive Disorder - continue Zoloft; possible cognitive eval per OT if warranted Patient wishes to be a no code. DVT prophylaxis risk is low so we'll encourage early ambulation. The patient will be transitioned to Swing Bed tomorrow for skilled physical therapy for approximately one week. Will reassess at that time NH vs home. The patient does wish to be transferred to a higher level of care should the need arise. The left clavicle fracture is not all that overly impressive, therefore I do not feel the patient needs orthopedic referral at this time. We will continue to monitor. Swing bed tomorrow. NOTE: This patient was seen and examined by me today as an [facility] provider.
[2017-08-08] MEDS: Acetaminophen 325 MG Tab PO PRN (05:15)
[2017-08-08] MEDS: Furosemide 20 MG Tab PO SCH (07:18)
[2017-08-08] MEDS: Lisinopril 20 MG Tab PO SCH (07:19)
[2017-08-08] MEDS: Carvedilol 6.25 MG Tab PO SCH (07:19)
[2017-08-08] MEDS: Sertraline 25 MG Tab PO SCH (07:19)
[2017-08-08] MEDS: Insulin Detemir 100 Units/ML 3 ML Pen SUBCUT SCH (07:21)
[2017-08-08] MEDS: Insulin Aspart 100 Units/ML 3 ML Pen SUBCUT SCH (07:23)
--- NOTE | 2017-08-08 08:32 | PCM.DCSUM1 ---
Discharge Summary - Hospital Course HPI Initial Comments: 82-year-old male patient was brought to the emergency room at [facility] two days ago by the ambulance with a chief complaint of weakness. According to the EMS crew, the patient was unable to get himself up off the couch or up from a chair, therefore they were called. The patient states that he had a fall at home last Thursday. The patient does not remember the exact mechanism of injury. The patient states that he sustained a twisting injury to the right lower ankle. The patient states that he also fell onto his left shoulder during the fall. The patient denied any head injury or trauma. The patient remembers the entire incident. The patient currently denies any chest pain or short of breath. The patient denies any abdominal pain. The patient denies any neck or back pain. The patient continues to complain of right ankle pain. The patient was seen by me in clinic last Thursday for his complaint of right ankle pain. The patient did not complain of any shoulder pain at that time. I did obtain an x-ray of the right ankle which was negative for any fracture or dislocation. The patient was diagnosed with a right ankle sprain and was sent home from the clinic. The patient states since then he has felt more and more weak. The patient has a history of poor compliance with his diabetes regimen. The patient does get home health services with his medications and also for assessment of a healing left anterior raymond venous stasis ulcer. The patient currently lives alone in an apartment. There has been questions in the past whether or not the patient should be admitted to a fdc. During the patient's emergency room visit, the patient's blood sugar was elevated in the 260s. The patient had a left shoulder x-ray which showed a possible nondisplaced fracture of the clavicle. - Discharge Data Discharge Date: 08/08/17 Discharge Disposition: DC/Tfer W/I Hosp To Swing 61 Condition: Good - Discharge Diagnosis/Problem(s) (1) Weakness SNOMED Code(s): 92140101 ICD Code: R53.1 - WEAKNESS Status: Acute Priority: Medium Current Visit : Yes (2) Clavicle fracture SNOMED Code(s): 92866496 ICD Code: S42.009A - FRACTURE OF UNSP PART OF UNSP CLAVICLE, INIT FOR CLOS FX Status: Acute Priority: Medium Current Visit: Yes Qualifiers: Encounter type: initial encounter Clavicle location: unspecified part of clavicle Fracture type: closed Fracture alignment: nondisplaced Laterality : left Qualified Code(s): S42.002A - Fracture of unspecified part of left clavicle, initial encounter for closed fracture (3) Hyperglycemia due to type 2 diabetes mellitus SNOMED Code(s): 377324112632576, 883129448801868 ICD Code: E11.65 - TYPE 2 DIABETES MELLITUS WITH HYPERGLYCEMIA Status: Chronic Priority: Medium Current Visit: Yes Qualifiers: Diabetes mellitus regional intermodal truck driver insulin use: with fpc use Qualified Code( s): E11.65 - Type 2 diabetes mellitus with hyperglycemia; Z79.4 - FDC ( current) use of insulin (4) Coronary artery disease SNOMED Code(s): 20565270 ICD Code: I25.10 - ATHSCL HEART DISEASE OF [place] CORONARY ARTERY W/O ANG PCTRS Status: Chronic Priority: Medium Current Visit: No Qualifiers: Coronary Disease-Associated Artery/Lesion type: [place] artery [place] vs. transplanted heart: [place] heart Associated angina: without angina Qualified Code(s): I25.10 - Atherosclerotic heart disease of [place] coronary artery without angina pectoris (5) Essential hypertension SNOMED Code(s): 19103353 ICD Code: I10 - ESSENTIAL (PRIMARY) HYPERTENSION Status: Chronic Priority : Low Current Visit: No (6) Dementia SNOMED Code(s): 19479904 ICD Code: F03.90 - UNSPECIFIED DEMENTIA WITHOUT BEHAVIORAL DISTURBANCE Status: Chronic Priority: Medium Current Visit: No Qualifiers: Dementia type: unspecified type Dementia behavioral disturbance: without behavioral disturbance Qualified Code(s): F03.90 - Unspecified dementia without behavioral disturbance (7) Chronic kidney disease (CKD), stage III (moderate) SNOMED Code(s): 776518311 ICD Code: N18.3 - CHRONIC KIDNEY DISEASE, STAGE 3 (MODERATE) Status: Chronic Priority: Low Current Visit: No (8) Major depressive disorder SNOMED Code(s): 357178609 ICD Code: F32.9 - MAJOR DEPRESSIVE DISORDER, SINGLE EPISODE, UNSPECIFIED Status: Acute Current Visit: Yes Qualifiers: Major depression recurrence: recurrent Active/Remission status: currently active Major depression episode severity: mild Qualified Code(s): F33.0 - Major depressive disorder, recurrent, mild - Patient Summary/Data Operative Procedure(s) Performed: None Consults: Consultations 08/06/17 16:07 Consult to Case Management [CONS] Routine OT Evaluation and Treatment [CONS] Routine PT Evaluation and Treatment [CONS] Routine Labs Pending at D/C: None Hospital Course: Overall, patient did well on observation. He remained hemodynamically stable. No fevers. PO intake ok. He did have one BM with clots yesterday. He is fairly weak and needs skilled PT. Labs stable. Urinating ok. Patient will be transitioned to swing bed today for further rehab with PT/OT - Patient Instructions Diet: Diabetic Diet Activity, Other: per PT/OT recommendations Driving: Do Not Drive Showering/Bathing: May Shower Notify Provider of: Fever, Increased Pain, Nausea and/or Vomiting - Discharge Plan Home Medications: Home Meds Carvedilol [Coreg] 6.25 mg PO BID 08/06/17 [History] Insulin Glargine,Hum.Rec.Anlog [Toujeo Solostar] 81 unit SQ BEDTIME 08/06/17 [ History] Lisinopril 20 mg PO DAILY 08/06/17 [History] Sertraline [Zoloft] 25 mg PO DAILY 08/06/17 [History] Acetaminophen [Tylenol] 650 mg PO Q4H PRN tablet 08/08/17 [Rx] Furosemide [Lasix] 20 mg PO BIDDIURETIC tablet 08/08/17 [Rx] Insulin Aspart [NovoLOG] 18 unit SUBCUT BID pen 08/08/17 [Rx] Ondansetron [Zofran ODT] 4 mg PO Q6H PRN tab.dis 08/08/17 [Rx] - Discharge Summary/Plan Comment DC Time >30 min.: No Discharge Summary/Plan Comment: Patient will be discharge from observation and admitted to swing bed today for further rehab with Physical and Occupational therapy. The patient's admission H& P from observation is current and active at the time of this discharge and may be used for Swing Bed. Will continue same medications and care. Will stop IVF. NOTE: This patient was seen and examined and admitted to Swing Bed by me as an [facility] provider. - General Info Date of Service: 08/08/17 Admission Dx/Problem (Free Text: Admission Diagnosis/Problem Admission Diagnosis/Problem Weakness Hyperglycemia Left Clavicle Fracture Subjective Update: Patient offers no specific complaints today. He has minimal pain of the left shoulder. He denies any right foot or right ankle pain.the patient states his appetite has been good. The patient denies any problems with urination or bowel movements. His pain is well controlled. The patient states he feels very weak in the legs. Otherwise no new concerns. Functional Status: Reports: Pain Controlled, Tolerating Diet, Ambulating, Urinating Numeric/FACES Score: 0 - Review of Systems General: Reports: Fever, Weakness, Fatigue Pulmonary: Denies: Shortness of Breath, Sputum Cardiovascular: Denies: Chest Pain, Palpitations Gastrointestinal: Denies: Abdominal Pain, Nausea, Vomiting Skin: Reports: Other (left lower raymond healing venous stasis ulcer) Neurological: Reports: Difficulty Walking, Weakness, Gait Disturbance - Patient Data Vitals - Most Recent: Last Vital Signs Temp 36.5 C 08/08/17 04:42 Pulse 83 08/08/17 07:19 Resp 20 08/08/17 04:42 BP 160/62 H 08/08/17 07:19 Pulse Ox 93 L 08/08/17 04:42 Weight - Most Recent: 123.06 kg I&O - Last 24 hours: Intake & Output 08/07/17 08/08/17 08/08/17 22:59 06:59 14:59 Intake Total 1940 1057 Output Total 400 750 Balance 1540 307 Lab Results - Last 24 hrs: Laboratory Results - last 24 hr 08/07/17 08/07/17 08/07/17 Range/Units 11:37 15:55 20:20 WBC (4.0-10.0) x10^3/uL RBC (4.5-6.0) x10^6/uL Hgb (14.0-18.0) g/dL Hct (40.0-52.0) % MCV (78.0-93.0) fL MCH (26.0-32.0) pg MCHC (32.0-36.0) g/dL RDW Coeff of Shivani (10.0-15.0) % Plt Count (130-400) x10^3/uL Neutrophils % (Manual) (50-80) % Band Neutrophils % (0-6) % Lymphocytes % (Manual) (25-50) % Monocytes % (Manual) (2-11) % Eosinophils % (Manual) (0-4) % Vacuolated Monocytes Toxic Granulation Platelet Estimate Macrocytosis Sodium (136-145) mmol/L Potassium (3.5-5.1) mmol/L Chloride (98-107) mmol/L Carbon Dioxide (21-32) mmol/L Anion Gap BUN (7-18) mg/dL Creatinine (0.70-1.30) mg/dL Est Cr Clr Drug Dosing mL/min Estimated GFR (MDRD) Glucose (74-106) mg/dL POC Glucose 202 H 234 H 248 H (74-106) mg/dL Calcium (8.5-10.1) mg/dL 08/08/17 08/08/17 Range/Units 07:20 07:20 WBC 8.2 (4.0-10.0) x10^3/uL RBC 4.59 (4.5-6.0) x10^6/uL Hgb 14.6 (14.0-18.0) g/dL Hct 43.9 (40.0-52.0) % MCV 95.6 H (78.0-93.0) fL MCH 31.8 (26.0-32.0) pg MCHC 33.3 (32.0-36.0) g/dL RDW Coeff of Shivani 14.8 (10.0-15.0) % Plt Count 152 (130-400) x10^3/uL Neutrophils % (Manual) 78 (50-80) % Band Neutrophils % 3 (0-6) % Lymphocytes % (Manual) 13 L (25-50) % Monocytes % (Manual) 5 (2-11) % Eosinophils % (Manual) 1 (0-4) % Vacuolated Monocytes 1+ slight H Toxic Granulation 1+ slight H Platelet Estimate Adequate Macrocytosis 1+ slight H Sodium 136 (136-145) mmol/L Potassium 3.8 (3.5-5.1) mmol/L Chloride 101 (98-107) mmol/L Carbon Dioxide 26 (21-32) mmol/L Anion Gap 12.8 BUN 22 H (7-18) mg/dL Creatinine 1.5 H (0.70-1.30) mg/dL Est Cr Clr Drug Dosing 45.67 mL/min Estimated GFR (MDRD) 45 Glucose 95 (74-106) mg/dL POC Glucose (74-106) mg/dL Calcium 8.2 L (8.5-10.1) mg/dL Med Orders - Current: Current Medications Acetaminophen (Tylenol) 650 mg PO Q4H PRN PRN Reason: Pain (Mild 1-3)/fever Last Admin: 08/08/17 05:15 Dose: 650 mg Carvedilol (Coreg) 6.25 mg PO BID [facility] Last Admin: 08/08/17 07:19 Dose: 6.25 mg Furosemide (Lasix) 20 mg PO BIDDIURETIC [facility] Last Admin: 08/08/17 07:18 Dose: 20 mg Lactated Ringer's (Ringers, Lactated) 1,000 mls @ 75 mls/hr IV ASDIRECTED [facility] Last Admin: 08/07/17 19:10 Dose: 75 mls/hr Insulin Aspart (Novolog) 18 unit SUBCUT BID [facility] Last Admin: 08/08/17 07:23 Dose: 18 units Insulin Detemir (Levemir) 40 unit SUBCUT BEDTIME [facility] Last Admin: 08/07/17 20:19 Dose: 40 units Insulin Detemir (Levemir) 41 unit SUBCUT QAM [facility] Last Admin: 08/08/17 07:21 Dose: 41 units Lisinopril (Prinivil) 20 mg PO DAILY [facility] Last Admin: 08/08/17 07:19 Dose: 20 mg Ondansetron HCl (Zofran Odt) 4 mg PO Q6H PRN PRN Reason: nausea, able to take PO Sertraline HCl (Zoloft) 25 mg PO DAILY [facility] Last Admin: 08/08/17 07:19 Dose: 25 mg Sodium Chloride (Saline Flush) 10 ml FLUSH ASDIRECTED PRN PRN Reason: Keep Vein Open Discontinued Medications Insulin Human Regular (Humulin R) 0 unit SUBCUT TID [facility]; Protocol - Exam Quality Assessment: Reports: Skin Breakdown General: Reports: Alert, Oriented, Cooperative, No Acute Distress Lungs: Reports: Clear to Auscultation, Normal Respiratory Effort, Decreased Breath Sounds Cardiovascular: Reports: Regular Rate, Regular Rhythm GI/Abdominal Exam: Normal Bowel Sounds, Soft, Non-Tender Extremities: Pedal Edema (+1 bilateral) Skin: Reports: Warm, Dry, Intact, Other (left anterior raymond has healing venous stasis ulcer; skin intact; no drainage) Wound/Incisions: Reports: Healing Well Neurological: Reports: No New Focal Deficit *Q Meaningful Use (DIS) - VTE *Q VTE Mechanical Contraindications *Q: At Risk for Falls
== END 2017-08-08 09:00 | disposition swing bed (61) ==
LOC: VM.ED 13:44 → VM.MS 15:42
PROVIDERS: ADMIT Nurse Practitioner Family; ATTEND Nurse Practitioner Family
DX: R53.1 Weakness (principal); S42.002A Fracture of unspecified part of left clavicle, initial encounter for closed fracture; E11.65 Type 2 diabetes mellitus with hyperglycemia; I25.10 Atherosclerotic heart disease of native coronary artery without angina pectoris; F03.90 Unspecified dementia, unspecified severity, without behavioral disturbance, psychotic disturbance, mood disturbance, and anxiety; N18.3 Chronic kidney disease, stage 3 (moderate); I12.9 Hypertensive chronic kidney disease with stage 1 through stage 4 chronic kidney disease, or unspecified chronic kidney disease; F33.0 Major depressive disorder, recurrent, mild; E78.5 Hyperlipidemia, unspecified; E11.22 Type 2 diabetes mellitus with diabetic chronic kidney disease; E66.9 Obesity, unspecified; W19.XXXA Unspecified fall, initial encounter; Z79.4 Long term (current) use of insulin; Z79.899 Other long term (current) drug therapy; Z88.6 Allergy status to analgesic agent; Z88.8 Allergy status to other drugs, medicaments and biological substances; Z68.30 Body mass index [BMI] 30.0-30.9, adult; Z85.828 Personal history of other malignant neoplasm of skin
CPT/HCPCS: 36415; 71046; 73030; 80048; 81001; 82962; 83880; 85025; 97161; 97165; 99285; A9270; J1815; J7120; 96360; 96361; G0378

== ENCOUNTER 2017-08-08 09:00 | Inpatient (IN) | payer MEDICARE, MEDICAID ==
[~2017-08-08 09:00] MED LIST: Ondansetron 4 MG Tab.DIS PO PRN
[2017-08-08] MEDS: Furosemide 20 MG Tab (OWN SUPPLY) PO SCH (15:07)
[2017-08-08] MEDS: Insulin Aspart 100 Units/ML 3 ML Pen SUBCUT SCH (17:25)
[2017-08-08] MEDS ORDERED: INSULIN ASPART 100 UNIT/ML SUBCUT SCH (18:00)
[2017-08-08] MEDS: Acetaminophen 325 MG Tab PO PRN (19:35)
[2017-08-08] MEDS: TOUJEO 300 UNIT/ML SUBCUT SCH (19:35)
[2017-08-08] MEDS ORDERED: Insulin Detemir 100 Units/ML 3 ML Pen SUBCUT SCH (20:00)
[2017-08-09] MEDS: SERTRALINE 25 MG PO SCH (07:22)
[2017-08-09] MEDS: Furosemide 20 MG Tab (OWN SUPPLY) PO SCH ×2 (07:22→15:54)
[2017-08-09] MEDS: Insulin Aspart 100 Units/ML 3 ML Pen SUBCUT SCH ×2 (07:25→17:02)
[2017-08-09] MEDS: Sodium Chloride 0.9% 10 ML Syringe FLUSH PRN ×2 (07:28→19:44)
[2017-08-09] MEDS: Acetaminophen 325 MG Tab PO PRN (17:05)
[2017-08-09] MEDS: TOUJEO 300 UNIT/ML SUBCUT SCH (19:52)
[2017-08-10] MEDS: SERTRALINE 25 MG PO SCH (07:39)
[2017-08-10] MEDS: Acetaminophen 325 MG Tab PO PRN ×2 (07:39→17:22)
[2017-08-10] MEDS: Furosemide 20 MG Tab (OWN SUPPLY) PO SCH ×2 (07:40→17:22)
[2017-08-10] MEDS: Insulin Aspart 100 Units/ML 3 ML Pen SUBCUT SCH (07:40)
[2017-08-10] MEDS: NOVOLOG SUBCUT SCH (17:46)
[2017-08-10] MEDS: TOUJEO 300 UNIT/ML SUBCUT SCH (20:49)
[2017-08-11] MEDS: SERTRALINE 25 MG PO SCH (08:34)
[2017-08-11] MEDS: Furosemide 20 MG Tab (OWN SUPPLY) PO SCH ×2 (08:35→18:04)
[2017-08-11] MEDS: NOVOLOG SUBCUT SCH ×2 (08:36→18:04)
[2017-08-11] MEDS: Loperamide 2 MG Cap PO PRN ×2 (12:09→20:28)
[2017-08-11] MEDS: TOUJEO 300 UNIT/ML SUBCUT SCH ×2 (20:23→20:34)
[2017-08-12] MEDS: Furosemide 20 MG Tab (OWN SUPPLY) PO SCH (07:36)
[2017-08-12] MEDS: SERTRALINE 25 MG PO SCH (07:36)
[2017-08-12] MEDS: NOVOLOG SUBCUT SCH (07:37)
--- NOTE | 2017-08-12 13:54 | PCM.DCSUM1 ---
Discharge Summary - Hospital Course HPI Initial Comments: 82-year-old male patient was brought to the emergency room on 08/06/2017 at [facility] by the ambulance with a chief complaint of weakness. According to the EMS crew, the patient was unable to get himself up off the couch or up from a chair, therefore they were called. The patient states that he had a fall at home last Thursday. The patient does not remember the exact mechanism of injury. The patient states that he sustained a twisting injury to the right lower ankle. The patient states that he also fell onto his left shoulder during the fall. The patient denied any head injury or trauma. The patient remembers the entire incident. The patient had denied any chest pain or short of breath. The patient denied any abdominal pain. The patient denied any neck or back pain. The patient had continued complains of right ankle pain. The patient was seen by me in clinic 08/04/2017 for his complaint of right ankle pain. The patient did not complain of any shoulder pain at that time. I did obtain an x-ray of the right ankle which was negative for any fracture or dislocation. The patient was diagnosed with a right ankle sprain and was sent home from the clinic. The patient states since then he has felt more and more weak. The patient has a history of poor compliance with his diabetes regimen. The patient does get home health services with his medications and also for assessment of a healing left anterior raymond venous stasis ulcer. The patient currently lives alone in an apartment. There has been questions in the past whether or not the patient should be admitted to a alf. During the patient's emergency room visit, the patient's blood sugar was elevated in the 260s. The patient had a left shoulder x-ray which showed a possible nondisplaced fracture of the clavicle. Patient was admitted to observation on 08/06/2017. He continued to be very weak, so physical therapy continued to work with patient. - Discharge Data Discharge Date: 08/12/17 Discharge Disposition: Home, Self-Care 01 Condition: Fair - Discharge Diagnosis/Problem(s) (1) Weakness SNOMED Code(s): 90258313 ICD Code: R53.1 - WEAKNESS Status: Resolved Priority: Medium Current Visit: Yes (2) Clavicle fracture SNOMED Code(s): 21038723 ICD Code: S42.009A - FRACTURE OF UNSP PART OF UNSP CLAVICLE, INIT FOR CLOS FX Status: Acute Priority: Medium Current Visit: Yes Qualifiers: Encounter type: initial encounter Clavicle location: unspecified part of clavicle Fracture type: closed Fracture alignment: nondisplaced Laterality : left Qualified Code(s): S42.002A - Fracture of unspecified part of left clavicle, initial encounter for closed fracture (3) Hyperglycemia SNOMED Code(s): 22798423 ICD Code: R73.9 - HYPERGLYCEMIA, UNSPECIFIED Status: Resolved Priority: Medium Current Visit: Yes (4) Coronary artery disease SNOMED Code(s): 97413074 ICD Code: I25.10 - ATHSCL HEART DISEASE OF [place] CORONARY ARTERY W/O ANG PCTRS Status: Chronic Priority: Medium Current Visit: No Qualifiers: Coronary Disease-Associated Artery/Lesion type: [place] artery [place] vs. transplanted heart: [place] heart Associated angina: without angina Qualified Code(s): I25.10 - Atherosclerotic heart disease of [place] coronary artery without angina pectoris (5) Dementia SNOMED Code(s): 41302285 ICD Code: F03.90 - UNSPECIFIED DEMENTIA WITHOUT BEHAVIORAL DISTURBANCE Status: Chronic Priority: Medium Current Visit: No Qualifiers: Dementia type: unspecified type Dementia behavioral disturbance: without behavioral disturbance Qualified Code(s): F03.90 - Unspecified dementia without behavioral disturbance (6) Essential hypertension SNOMED Code(s): 73833414 ICD Code: I10 - ESSENTIAL (PRIMARY) HYPERTENSION Status: Chronic Priority : Low Current Visit: No (7) Chronic kidney disease (CKD), stage III (moderate) SNOMED Code(s): 659287467 ICD Code: N18.3 - CHRONIC KIDNEY DISEASE, STAGE 3 (MODERATE) Status: Chronic Priority: Low Current Visit: No - Patient Summary/Data Operative Procedure(s) Performed: None Consults: Consultations 08/07/17 16:43 OT Evaluation and Treatment [CONS] Routine 08/08/17 08:00 PT Evaluation and Treatment [CONS] Routine Labs Pending at D/C: None Recommended Follow-up Testing/Procedures: None Planned Operative Procedure(s) after DC: None Hospital Course: Patient remained hemodynamically stable and afebrile during his SB stay. Blood sugars are under much better control. Patient did not have any issues with his left clavicle fracture. Patient did not have any problems with urination and BM' s. Pain under good control. Tolerated PO fluids well. Weakness much improved over the past couple of days. - Patient Instructions Diet: Diabetic Diet Activity: No Strenuous Activities, Rest and Relax Today Driving: Do Not Drive Showering/Bathing: May Shower Notify Provider of: Fever, Increased Pain, Nausea and/or Vomiting - Discharge Plan Home Medications: Home Meds Carvedilol [Coreg] 6.25 mg PO BID 08/06/17 [History] Insulin Glargine,Hum.Rec.Anlog [Toujeo Solostar] 81 unit SQ BEDTIME 08/06/17 [ History] Lisinopril 20 mg PO DAILY 08/06/17 [History] Sertraline [Zoloft] 25 mg PO DAILY 08/06/17 [History] Acetaminophen [Tylenol] 650 mg PO Q4H PRN tablet 08/08/17 [Rx] Furosemide [Lasix] 20 mg PO BIDDIURETIC tablet 08/08/17 [Rx] Insulin Aspart [NovoLOG] 18 unit SUBCUT BID pen 08/08/17 [Rx] Ondansetron [Zofran ODT] 4 mg PO Q6H PRN tab.dis 08/08/17 [Rx] Patient Handouts: Type 1 Diabetes Mellitus, Diagnosis, Adult, Weakness, Easy-to -Read Referrals: Navya Emmanuel DO [Primary Care Provider] - - Discharge Summary/Plan Comment DC Time >30 min.: Yes Discharge Summary/Plan Comment: Patient will be discharge home today. No changes with any home medications is necessary. Will continue with home health as previously ordered by PCP. Recommend follow up with PCP in one week for a hospital discharge follow up. - General Info Date of Service: 08/12/17 Admission Dx/Problem (Free Text: Weakness Hyperglycemia Deconditing Subjective Update: Patient offers no specific complaints at time of discharge. He states he is feeling well. No chest pain or SOB. He states his legs feel good and much stronger. Denies any abdominal pain. No N/V/D. Numeric/FACES Score: 0 - Review of Systems General: Denies: Fever, Weakness, Chills Pulmonary: Denies: Shortness of Breath, Cough Cardiovascular: Denies: Chest Pain, Palpitations Gastrointestinal: Denies: Abdominal Pain, Nausea, Vomiting Skin: Reports: No Symptoms Neurological: Denies: Dizziness, Headache - Patient Data Vitals - Most Recent: Last Vital Signs Temp 36.8 C 08/12/17 06:00 Pulse 98 08/12/17 06:00 Resp 20 08/12/17 06:00 BP 155/80 H 08/12/17 06:00 Pulse Ox 98 08/12/17 06:00 Weight - Most Recent: 110.79 kg I&O - Last 24 hours: Intake & Output 08/11/17 08/12/17 08/12/17 22:59 06:59 14:59 Intake Total 240 800 Balance 240 800 Lab Results - Last 24 hrs: Laboratory Results - last 24 hr 08/11/17 08/11/17 08/12/17 Range/Units 17:13 20:32 06:35 POC Glucose 174 H 139 H 101 (74-106) mg/dL 08/12/17 Range/Units 11:36 POC Glucose 105 (74-106) mg/dL OLIVA Results - Last 24 hrs: Microbiology 08/11/17 12:30 Clostridium difficile (PCR) - Final Stool / Feces Med Orders - Current: Current Medications Acetaminophen (Tylenol) 650 mg PO Q4H PRN PRN Reason: Pain (Mild 1-3)/fever Last Admin: 08/10/17 17:22 Dose: 650 mg Carvedilol (Coreg) 6.25 mg PO BID REPLACED BY [facility] Last Admin: 08/12/17 07:36 Dose: 6.25 mg Furosemide (Lasix) 20 mg PO BIDDIURETIC REPLACED BY [facility] Last Admin: 08/12/17 07:36 Dose: 20 mg Lisinopril (Prinivil) 20 mg PO DAILY REPLACED BY [facility] Last Admin: 08/12/17 07:36 Dose: 20 mg Loperamide HCl (Imodium) 2 mg PO Q4H PRN PRN Reason: Diarrhea Last Admin: 08/11/17 20:28 Dose: 2 mg Toujeo 300 Units/Ml ((Own Supply)) 0 units SUBCUT BEDTIME REPLACED BY [facility] Last Admin: 08/11/17 20:34 Dose: 81 units Novolog (Own Supply) 0 units SUBCUT BIDMEALS REPLACED BY [facility] Last Admin: 08/12/17 07:37 Dose: 18 units Ondansetron HCl (Zofran Odt) 4 mg PO Q6H PRN PRN Reason: nausea, able to take PO Sertraline HCl (Zoloft) 25 mg PO DAILY REPLACED BY [facility] Last Admin: 08/12/17 07:36 Dose: 25 mg Sodium Chloride (Saline Flush) 10 ml FLUSH ASDIRECTED PRN PRN Reason: Keep Vein Open Last Admin: 08/09/17 19:44 Dose: 10 ml Discontinued Medications Insulin Aspart (Novolog) 18 unit SUBCUT BIDMEALS REPLACED BY [facility] Insulin Aspart (Novolog) 18 unit SUBCUT BIDMEALS REPLACED BY [facility] Last Admin: 08/10/17 07:40 Dose: 18 units PtomToujeo 300 (Units/Ml) 0 each SUBCUT BEDTIME REPLACED BY [facility] Last Admin: 08/11/17 20:23 Dose: 81 each - Exam General: Reports: Alert, Oriented, Cooperative, No Acute Distress Lungs: Reports: Clear to Auscultation, Normal Respiratory Effort, Decreased Breath Sounds Cardiovascular: Reports: Regular Rate, Regular Rhythm GI/Abdominal Exam: Normal Bowel Sounds, Soft, Non-Tender Skin: Reports: Warm, Dry, Intact, Other (Healed venous stasis ulcer left anterior raymond) Wound/Incisions: Reports: Healing Well (left anterior raymond) Neurological: Reports: No New Focal Deficit *Q Meaningful Use (DIS) - VTE *Q VTE Mechanical Contraindications *Q: At Risk for Falls
== END 2017-08-12 15:25 | disposition home or self-care (01) | DRG 948 ==
LOC: VM.MS 09:00 → UNDOADMIN 09:00 → UNDODISIN 08-12 15:25
PROVIDERS: ADMIT Nurse Practitioner Family; ATTEND Nurse Practitioner Family
DX: R53.1 Weakness (principal); L97.829 Non-pressure chronic ulcer of other part of left lower leg with unspecified severity; M25.571 Pain in right ankle and joints of right foot; I87.8 Other specified disorders of veins; S42.002A Fracture of unspecified part of left clavicle, initial encounter for closed fracture; W19.XXXA Unspecified fall, initial encounter; I25.10 Atherosclerotic heart disease of native coronary artery without angina pectoris; F03.90 Unspecified dementia, unspecified severity, without behavioral disturbance, psychotic disturbance, mood disturbance, and anxiety; I12.9 Hypertensive chronic kidney disease with stage 1 through stage 4 chronic kidney disease, or unspecified chronic kidney disease; N18.3 Chronic kidney disease, stage 3 (moderate); E11.65 Type 2 diabetes mellitus with hyperglycemia; E11.22 Type 2 diabetes mellitus with diabetic chronic kidney disease; F32.9 Major depressive disorder, single episode, unspecified; Z79.4 Long term (current) use of insulin; Z91.81 History of falling; Z79.899 Other long term (current) drug therapy
CPT/HCPCS: 82274; 82962; 87493; 97110-GP; 97116-GP; 97530-GP; 97535-GO; A9270-GY; J7050

== ENCOUNTER 2019-04-16 23:45 | Emergency (ER) | payer MEDICARE, MEDICAID ==
--- NOTE | 2019-04-17 02:19 | EDM.PDOC ---
ED HPI GENERAL MEDICAL PROBLEM - General Chief Complaint: General Stated Complaint: Fall, Evulsion of right eye lid, knee pain Time Seen by Provider: 04/16/19 23:45 Source of Information: Reports: Patient, EMS, [facility] Records History Limitations: Reports: No Limitations - History of Present Illness INITIAL COMMENTS - FREE TEXT/NARRATIVE: Pt. presents to ER via EMS. Pt. states that he fell in his room at the senior living, striking his head/face on a towel bar and breaking it, sustaining a laceration to his R eyelid. He landed on his R knee as well. Denies any LOC. No midline c-spine pain on arrival to ED. Pt. denies any chest pain or shortness of breath. No lightheadedness. No nausea , vomiting, or diarrhea. No vertigo. Onset Date: 04/16/19 Location: Reports: Head, Face, Lower Extremity, Right Right knee Pain Score (Numeric/FACES): 3 - Related Data Allergies Allergy/AdvReac Type Severity Reaction Status Date / Time aspirin Allergy Other Verified 04/17/19 11:17 naproxen [From Aleve] Allergy Difficulty Verified 04/17/19 11:17 Breathing Home Meds: Home Meds carvediloL [Coreg] 6.25 mg PO BID 08/06/17 [History] Aspirin [Halfprin] 81 mg PO DAILY 03/30/18 [History] Cephalexin [Keflex] 500 mg PO BID 03/30/18 [History] Furosemide [Lasix] 20 mg PO BID 03/30/18 [History] Insulin Glarg,Human.Rec.Analog [Lantus Solostar] 32 units SUBCUT DAILY 03/30/18 [History] Potassium Chloride 20 meq PO DAILY 03/30/18 [History] Sertraline [Zoloft] 50 mg PO DAILY 03/30/18 [History] Spironolactone 50 mg PO DAILY 03/30/18 [History] Insulin Aspart [NovoLOG] 0 unit SQ TIDMEALS 03/31/18 [History] Insulin Aspart [NovoLOG] 0 unit SUBCUT BEDTIME 03/31/18 [History] Magnesium Chloride 140 mg PO DAILY 03/31/18 [History] Past Medical History HEENT History: Reports: Other (See Below) Other HEENT History: wears glasses Cardiovascular History: Reports: CAD, High Cholesterol, Hypertension Genitourinary History: Reports: Renal Disease, Other (See Below) Other Genitourinary History: CKD III Psychiatric History: Reports: Dementia, Depression Endocrine/Metabolic History: Reports: Diabetes, Type II, Obesity/BMI 30+ Oncologic (Cancer) History: Reports: Squamous Cell Carcinoma Dermatologic History: Reports: Other (See Below) Other Dermatologic History: diabetic ulcers - Past Surgical History Male Surgical History: Reports: None Social & Family History - Family History Family Medical History: Noncontributory - Caffeine Use Caffeine Use: Reports: Coffee ED ROS GENERAL - Review of Systems Review Of Systems: See Below Constitutional: Reports: No Symptoms HEENT: Reports: Other (5 cm laceration/avusion to eyelid. Numerous other small abrasions/lacerations to nose/face.) Respiratory: Reports: No Symptoms Cardiovascular: Reports: No Symptoms Endocrine: Reports: No Symptoms GI/Abdominal: Reports: No Symptoms : Reports: No Symptoms Musculoskeletal: Reports: Leg Pain Skin: Reports: No Symptoms Neurological: Reports: No Symptoms Psychiatric: Reports: No Symptoms Hematologic/Lymphatic: Reports: No Symptoms Immunologic: Reports: No Symptoms ED EXAM, GENERAL - Physical Exam Exam: See Below Exam Limited By: No Limitations General Appearance: Alert, WD/WN, No Apparent Distress Eye Exam: Right Eye: Other (5 cm skin tear to R eyelid), Bilateral Eye: EOMI, PERRL Ears: Normal External Exam, Normal Canal, Hearing Grossly Normal, Normal TMs Ear Exam: Bilateral Ear: Auricle Normal, Canal Normal, TM normal Nose: Normal Inspection, Normal Mucosa, No Blood Throat/Mouth: Normal Inspection, Normal Lips, Normal Teeth, Normal Gums, Normal Oropharynx, Normal Voice, No Airway Compromise Head: Facial Tenderness Neck: Normal Inspection, Supple, Non-Tender, Full Range of Motion Respiratory/Chest: No Respiratory Distress, Lungs Clear, Normal Breath Sounds, No Accessory Muscle Use, Chest Non-Tender Cardiovascular: Normal Peripheral Pulses, Regular Rate, Rhythm, No Edema, No Gallop, No JVD, No Murmur, No Rub Peripheral Pulses: 4+: Radial (L) GI/Abdominal: Normal Bowel Sounds, Soft, Non-Tender, No Organomegaly, No Distention, No Mass (Male) Exam: Deferred Rectal (Males) Exam: Deferred Back Exam: Normal Inspection, Full Range of Motion Extremities: Other (abrasion to R knee. No obvious deformity) Neurological: Alert, Oriented, CN II-XII Intact, Normal Cognition, Normal Gait, Normal Reflexes, No Motor/Sensory Deficits Psychiatric: Normal Affect, Normal Mood Skin Exam: Warm, Dry, Intact, Normal Color, No Rash Lymphatic: No Adenopathy Course - Vital Signs Last Recorded V/S: Last Vital Signs Temp 36.1 C 04/16/19 23:45 Pulse 108 H 04/16/19 23:45 Resp 16 04/16/19 23:45 BP 118/88 04/16/19 23:45 Pulse Ox 90 L 04/16/19 23:45 Departure - Departure Time of Disposition: 01:00 Disposition: DC/Tfer to SNF 03 Clinical Impression: Facial laceration, Knee contusion - Discharge Information Instructions: Concussion, Adult, [id number], Laceration Care, Adult, Contusion, [id number] Referrals: PCP,Unobtain [Primary Care Provider] - Forms: ED Department Discharge Additional Instructions: CT scans and x-rays are all negative for fracture. Keep the laceration to his R eyelid dry for 24 hours. Have the patient sleep with his head elevated, as this will decrease facial swelling tomorrow. Tylenol as needed for pain. Sepsis Event Note - Evaluation Sepsis Screening Result: No Definite Risk - Focused Exam Vital Signs: Vital Signs Temp Pulse Resp BP Pulse Ox 04/16/19 23:45 36.1 C 108 H 16 118/88 90 L Date Exam was Performed: 04/17/19 Time Exam was Performed: 11:16 - Assessment/Plan Plan: CT scans and x-rays are all negative for fracture. Keep the laceration to his R eyelid dry for 24 hours. Have the patient sleep with his head elevated, as this will decrease facial swelling tomorrow. Tylenol as needed for pain.
--- NOTE | 2019-04-17 07:39 | CT ---
[id number] CT/CT Head WO IV EXAM: CT Head WO IV CLINICAL DATA: FALL,STRUCK HEAD FACE. COMPARISON STUDY: March 2018. FINDINGS: No intracranial hemorrhage, extra-axial fluid collection, mass, or acute ischemia. Posterior right frontal lobe encephalomalacia. 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 No significant change from prior examination. Paranasal sinuses and mastoid air cells are clear. IMPRESSION: No acute intracranial findings. Other findings are described above. David Wolf MD 04/17/19 0738 Thank you for allowing us to participate in the care of your patient.
--- NOTE | 2019-04-17 07:47 | CT ---
[id number] CT/CT Facial Bones WO IV Exam: CT Facial Bones WO IV Indication:FALL STRUCK HEAD FACE. Comparison: No prior imaging for comparison. Discussion: Small right frontal scalp contusion. No underlying frontal bone fracture. No facial bone fracture identified. Linear lucency along the edge of the [id number] at the base of the odontoid process (series 4 image 58 and series 5 image 40). No prior imaging is available for comparison or correlation. Mild mucosal thickening in the left mastoid air cells. Paranasal sinuses are clear. Impression: Right frontal scalp contusion without underlying frontal bone fracture. No acute facial bone fracture. Nondisplaced fracture at the base of the odontoid process at C2. Lack of marginal cortication suggests possible acute fracture, especially in the setting of trauma. Consider cervical spine CT for further evaluation. Results relayed to ER staff at 0743 hours on today's date. David Wolf MD 04/17/19 [id number] Thank you for allowing us to participate in the care of your patient.
--- NOTE | 2019-04-17 08:16 | CR ---
[id number] RAD/RAD Knee Right 1-2V Exam: RAD Knee Right 1-2V Indication:FALL ONTO KNEE. R Comparison: No prior imaging for comparison. 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 Joint effusion with osteochondral bodies and mineralized debris/synovitis most prominent in the suprapatellar recess, where there is a 31 mm osteochondral body in its lateral aspect. No evidence of an acute fracture or dislocation. Impression: No acute findings. Chronic findings are described above. David Wolf MD 04/17/19 0815 Thank you for allowing us to participate in the care of your patient.
== END 2019-04-17 01:50 ==
LOC: VM.ED 23:45
DX: S01.111A Laceration without foreign body of right eyelid and periocular area, initial encounter (principal); S01.21XA Laceration without foreign body of nose, initial encounter; S80.01XA Contusion of right knee, initial encounter; I12.9 Hypertensive chronic kidney disease with stage 1 through stage 4 chronic kidney disease, or unspecified chronic kidney disease; N18.3 Chronic kidney disease, stage 3 (moderate); E11.22 Type 2 diabetes mellitus with diabetic chronic kidney disease; I25.10 Atherosclerotic heart disease of native coronary artery without angina pectoris; E11.622 Type 2 diabetes mellitus with other skin ulcer; L98.499 Non-pressure chronic ulcer of skin of other sites with unspecified severity; E66.9 Obesity, unspecified; F03.90 Unspecified dementia, unspecified severity, without behavioral disturbance, psychotic disturbance, mood disturbance, and anxiety; F32.9 Major depressive disorder, single episode, unspecified; E78.00 Pure hypercholesterolemia, unspecified; Z68.31 Body mass index [BMI] 31.0-31.9, adult; Z79.4 Long term (current) use of insulin; Z79.82 Long term (current) use of aspirin; Z79.899 Other long term (current) drug therapy; Z88.6 Allergy status to analgesic agent; W01.198A Fall on same level from slipping, tripping and stumbling with subsequent striking against other object, initial encounter; Y93.01 Activity, walking, marching and hiking; Y92.128 Other place in nursing home as the place of occurrence of the external cause
CPT/HCPCS: 12013; 70450; 70486; 73560-RT; 99284-GF; 99285-25

== ENCOUNTER 2019-04-17 10:58 | Emergency (ER) | payer MEDICARE, MEDICAID ==
--- NOTE | 2019-04-17 11:56 | CT ---
[id number] CT/CT Cervical Spine WO IV EXAM: CT Cervical Spine WO IV INDICATION: FELL. COMPARISON: None. DISCUSSION: At the base of the odontoid process there is a linear lucency. Findings are seen best on sagittal series 5 images 32 and 37 and series 4 images 29-31. With history of recent fall and lack of cortication at the margins of the lucency, findings are concerning for acute nondisplaced fracture. No extension into the lateral masses. No other evidence of acute fracture the cervical spine. Advanced changes of spondylosis, including both degenerative disc disease and facet joint arthropathy are seen. 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 IMPRESSION: Linear lucency at the base of the odontoid process of C2, concerning for an acute nondisplaced type I fracture. Results relayed to Manuel Romano at time of dictation. David Wolf MD 04/17/19 [id number] Thank you for allowing us to participate in the care of your patient.
--- NOTE | 2019-04-18 05:06 | EDM.PDOC ---
ED HPI GENERAL MEDICAL PROBLEM - General Chief Complaint: Neck Problem Time Seen by Provider: 04/17/19 11:05 Source of Information: Reports: Patient, Alf Records - History of Present Illness INITIAL COMMENTS - FREE TEXT/NARRATIVE: Was informed by [facility] that there was evidence of a possible odontoid fx. noted on one of the CT scans performed the night before. Radiologist suggested a dedicated cervical spine CT. Pt. was subsequently brought back to ED via EMS. Pt. did report some increased discomfort in his neck overnight. He did not have any significant discomfort last night. Pt. denies any numbness or tingling. No other focal neuro symptoms. Onset Date: 04/17/19 Location: Reports: Neck Quality: Reports: [employer]: Reports: Cervical Collar - Related Data Allergies Allergy/AdvReac Type Severity Reaction Status Date / Time aspirin Allergy Other Verified 04/17/19 11:17 naproxen [From Aleve] Allergy Difficulty Verified 04/17/19 11:17 Breathing Home Meds: Home Meds carvediloL [Coreg] 6.25 mg PO BID 08/06/17 [History] Aspirin [Halfprin] 81 mg PO DAILY 03/30/18 [History] Furosemide [Lasix] 20 mg PO BID 03/30/18 [History] Insulin Glarg,Human.Rec.Analog [Lantus Solostar] 60 units SUBCUT DAILY 03/30/18 [History] Sertraline [Zoloft] 50 mg PO DAILY 03/30/18 [History] Spironolactone 50 mg PO DAILY 03/30/18 [History] Insulin Aspart [NovoLOG] 10 unit SQ TIDMEALS 03/31/18 [History] Acetaminophen 650 mg PO TID 04/17/19 [History] Past Medical History HEENT History: Reports: Other (See Below) Other HEENT History: wears glasses Cardiovascular History: Reports: CAD, High Cholesterol, Hypertension Genitourinary History: Reports: Renal Disease, Other (See Below) Other Genitourinary History: CKD III Psychiatric History: Reports: Dementia, Depression Endocrine/Metabolic History: Reports: Diabetes, Type II, Obesity/BMI 30+ Oncologic (Cancer) History: Reports: Squamous Cell Carcinoma Dermatologic History: Reports: Other (See Below) Other Dermatologic History: diabetic ulcers - Past Surgical History Male Surgical History: Reports: None Social & Family History - Family History Family Medical History: Noncontributory - Tobacco Use Smoking Status *Q: Never Smoker - Caffeine Use Caffeine Use: Reports: Coffee - Recreational Drug Use Recreational Drug Use: No ED ROS GENERAL - Review of Systems Review Of Systems: See Below Constitutional: Reports: No Symptoms HEENT: Reports: No Symptoms Respiratory: Reports: No Symptoms Cardiovascular: Reports: No Symptoms Endocrine: Reports: No Symptoms GI/Abdominal: Reports: No Symptoms : Reports: No Symptoms Musculoskeletal: Reports: Neck Pain Skin: Reports: No Symptoms Neurological: Reports: No Symptoms. Denies: Confusion, Dizziness, Headache, Numbness, Paresthesia, Seizure, Tingling, Tremors, Trouble Speaking, Difficulty Walking, Weakness, Change in Speech, Gait Disturbance Psychiatric: Reports: No Symptoms Hematologic/Lymphatic: Reports: No Symptoms Immunologic: Reports: No Symptoms ED EXAM, GENERAL - Physical Exam Exam: See Below Exam Limited By: No Limitations General Appearance: Alert, WD/WN, No Apparent Distress Neck: Normal Inspection, Supple, Tender Lateral, Tender Midline Respiratory/Chest: No Respiratory Distress, Lungs Clear, Normal Breath Sounds, No Accessory Muscle Use, Chest Non-Tender Cardiovascular: Normal Peripheral Pulses, Regular Rate, Rhythm, No Edema, No Gallop, No JVD, No Murmur, No Rub GI/Abdominal: Soft, Non-Tender, No Organomegaly, No Distention, No Abnormal Bruit, No Mass Extremities: Normal Inspection, Normal Range of Motion, Non-Tender, No Pedal Edema, Normal Capillary Refill Neurological: Alert, Oriented, CN II-XII Intact, Normal Cognition, Normal Gait, Normal Reflexes, No Motor/Sensory Deficits Course - Vital Signs Last Recorded V/S: Last Vital Signs Temp 36.8 C 04/17/19 10:58 Pulse 90 04/17/19 10:58 Resp 16 04/17/19 10:58 BP 131/74 04/17/19 10:58 Pulse Ox 94 L 04/17/19 10:58 - Radiology Interpretation Free Text/Narrative:: CT cervical spine obtained and showed possible acute odontoid fx Departure - Departure Time of Disposition: 12:42 Disposition: Home, Self-Care 01 Clinical Impression: Odontoid fracture - Discharge Information Instructions: Cervical Spine Fracture, Stable Referrals: PCP,Unknown [Primary Care Provider] - Forms: ED Department Discharge Additional Instructions: Keep c-collar on at all times. [facility]. He will need to wear a collar for approx. 6 weeks. Start calcium +D supplement. I spoke with Dr. Miller who would like to see you in the clinic in 4 weeks. Sepsis Event Note - Evaluation Sepsis Screening Result: No Definite Risk - Assessment/Plan Plan: Keep c-collar on at all times. We will call [facility] to get a permanent collar for placement tomorrow. He will need to wear a collar for approx. 6 weeks. Start calcium +D supplement. I spoke with Dr. Miller who would like to see you in the clinic in 4 weeks.
== END 2019-04-17 12:43 | disposition home or self-care (01) ==
LOC: VM.ED 10:58
DX: S12.112A Nondisplaced Type II dens fracture, initial encounter for closed fracture (principal); E11.22 Type 2 diabetes mellitus with diabetic chronic kidney disease; I12.9 Hypertensive chronic kidney disease with stage 1 through stage 4 chronic kidney disease, or unspecified chronic kidney disease; N18.3 Chronic kidney disease, stage 3 (moderate); I25.10 Atherosclerotic heart disease of native coronary artery without angina pectoris; E78.00 Pure hypercholesterolemia, unspecified; E66.9 Obesity, unspecified; F03.90 Unspecified dementia, unspecified severity, without behavioral disturbance, psychotic disturbance, mood disturbance, and anxiety; F32.9 Major depressive disorder, single episode, unspecified; Z68.31 Body mass index [BMI] 31.0-31.9, adult; Z79.4 Long term (current) use of insulin; Z79.82 Long term (current) use of aspirin; Z79.899 Other long term (current) drug therapy; Z88.6 Allergy status to analgesic agent; W19.XXXA Unspecified fall, initial encounter
CPT/HCPCS: 72125; 99284-25; 99284-GF

== ENCOUNTER 2019-11-13 08:16 | Emergency (ER) | payer MEDICARE, MEDICAID ==
[2019-11-13] MEDS ORDERED: Phenazopyridine 95 MG Tab PO STA (09:03)
[2019-11-13] MEDS ORDERED: Cephalexin 500 MG Cap PO ONE (09:03)
--- NOTE | 2019-11-13 09:23 | EDM.PDOC ---
ED HPI GENERAL MEDICAL PROBLEM - General Chief Complaint: Genitourinary Problem Stated Complaint: LETHARGIC Time Seen by Provider: 11/13/19 09:08 Source of Information: Reports: Patient History Limitations: Reports: No Limitations - History of Present Illness INITIAL COMMENTS - FREE TEXT/NARRATIVE: [facility] with complaints o f generalized weakness and urinary frequency. He reports that ever since March he is has generalized weakness that is gotten worse over the past few days. This is been exacerbated by his need to go to the bathroom constantly to urinate. He has no dysuria but does have urinary frequency denies hematuria. He is continent of urine on a regular basis. No fever no chills. No abdominal pain nausea or vomiting. No diarrhea black or tarry stools. No chest pain no shortness of breath or difficulty breathing. No fever no chills. No COVID exposure. No COVID complaints. NO Chest pain no shortness of breath. NO dizziness or palpitations. - Related Data Allergies Allergy/AdvReac Type Severity Reaction Status Date / Time aspirin Allergy Other Verified 11/13/19 08:37 naproxen [From Aleve] Allergy Difficulty Verified 11/13/19 08:37 Breathing Home Meds: Home Meds carvediloL [Coreg] 6.25 mg PO BID 08/06/17 [History] Aspirin [Halfprin] 81 mg PO DAILY 03/30/18 [History] Furosemide [Lasix] 20 mg PO BID 03/30/18 [History] Insulin Glarg,Human.Rec.Analog [Lantus Solostar] 60 units SUBCUT DAILY 03/30/18 [History] Sertraline [Zoloft] 100 mg PO DAILY 03/30/18 [History] Spironolactone 50 mg PO DAILY 03/30/18 [History] Insulin Aspart [NovoLOG] 10 unit SQ TIDMEALS 03/31/18 [History] Acetaminophen 650 mg PO TID 04/17/19 [History] Acetaminophen [Tylenol] 650 mg PO TID 11/13/19 [History] Zinc Oxide [Desitin Creamy Diaper Rash Crm] 1 appful TOP BID 11/13/19 [History] traMADol [Ultram] 50 mg PO BID 11/13/19 [History] Past Medical History HEENT History: Reports: Other (See Below) Other HEENT History: wears glasses Cardiovascular History: Reports: CAD, High Cholesterol, Hypertension Genitourinary History: Reports: Renal Disease, Other (See Below) Other Genitourinary History: CKD III Psychiatric History: Reports: Dementia, Depression Endocrine/Metabolic History: Reports: Diabetes, Type II, Obesity/BMI 30+ Oncologic (Cancer) History: Reports: Squamous Cell Carcinoma Dermatologic History: Reports: Other (See Below) Other Dermatologic History: diabetic ulcers - Past Surgical History Male Surgical History: Reports: None Social & Family History - Family History Family Medical History: Noncontributory - Tobacco Use Smoking Status *Q: Never Smoker - Caffeine Use Caffeine Use: Reports: Coffee - Recreational Drug Use Recreational Drug Use: No ED ROS GENERAL - Review of Systems Review Of Systems: Comprehensive ROS is negative, except as noted in HPI. ED EXAM, RENAL/ - Physical Exam Exam: See Below Exam Limited By: No Limitations General Appearance: Alert, WD/WN, No Apparent Distress Respiratory/Chest: No Respiratory Distress, Lungs Clear Cardiovascular: Normal Peripheral Pulses, Regular Rate, Rhythm GI/Abdominal: Normal Bowel Sounds, Soft, Non-Tender (Male) Exam: Deferred Rectal (Males) Exam: Deferred Back Exam: Normal Inspection Extremities: Pedal Edema (1+ bilaterally. ) Neurological: Alert, Oriented, Normal Cognition, No Motor/Sensory Deficits Psychiatric: Normal Affect, Normal Mood Skin Exam: Warm, Dry, Intact, Normal Color, No Rash Course - Vital Signs Last Recorded V/S: Last Vital Signs Temp 97.7 F 11/13/19 08:20 Pulse 103 H 11/13/19 08:20 Resp 20 11/13/19 08:20 BP 148/83 H 11/13/19 08:20 Pulse Ox 95 11/13/19 08:20 - Orders/Labs/Meds Orders: Active Orders 24 hr Category Date Time Status EKG Documentation Completion [RC] STAT Care 11/13/19 09:21 Active CULTURE URINE [RM] Stat Lab 11/13/19 07:30 Received Labs: Laboratory Tests 11/13/19 11/13/19 11/13/19 Range/Units 07:30 09:20 09:20 WBC 8.0 (4.0-10.0) x10^3/uL RBC 4.50 (4.5-6.0) x10^6/uL Hgb 12.7 L (14.0-18.0) g/dL Hct 39.7 L (40.0-52.0) % MCV 88.2 (78.0-93.0) fL MCH 28.2 (26.0-32.0) pg MCHC 32.0 (32.0-36.0) g/dL RDW Coeff of Shivani 15.3 H (10.0-15.0) % Plt Count 181 (130-400) x10^3/uL Add Manual Diff Yes Neutrophils % (Manual) 70 (50-80) % Band Neutrophils % 4 (0-6) % Lymphocytes % (Manual) 14 L (25-50) % Monocytes % (Manual) 7 (2-11) % Metamyelocytes % 4 H (0) % Myelocytes % 1 H (0) % Platelet Estimate Adequate Giant Platelets Rare H Anisocytosis 1+ slight H Sodium 133 L (136-145) mmol/L Potassium 5.7 H (3.5-5.1) mmol/L Chloride 102 (98-107) mmol/L Carbon Dioxide 21 (21-32) mmol/L Anion Gap 15.7 (10-20) mmol/L BUN 51 H (7-18) mg/dL Creatinine 2.5 H (0.70-1.30) mg/dL Est Cr Clr Drug Dosing TNP Estimated GFR (MDRD) 25 Glucose 152 H (74-106) mg/dL Lactic Acid (0.4-2.0) mmol/L Calcium 8.3 L (8.5-10.1) mg/dL Troponin I (<=0.056) ng/mL Urine Color Yellow (YELLOW) Urine Appearance Turbid H (CLEAR) Urine pH 5.5 (5.0-8.0) Ur Specific [place] >=1.030 Urine Protein >=300 H (NEGATIVE) mg/dL Urine Glucose (UA) Negative (NEGATIVE) mg/dL Urine Ketones Negative (NEGATIVE) mg/dL Urine Occult Blood Large H (NEGATIVE) Urine Nitrite Negative (NEGATIVE) Urine Bilirubin Negative (NEGATIVE) Urine Urobilinogen 0.2 (0.2) EU/dL Ur Leukocyte Esterase Large H (NEGATIVE) Urine RBC 40-50 H (NOT SEEN) /HPF Urine WBC >100 H (NOT SEEN) /HPF Ur Squamous Epith Cells Occasional H (NEGATIVE) /HPF Amorphous Sediment Few Urine Bacteria Few H (NEGATIVE) /HPF Urine Mucus Few H (NEGATIVE) /LPF 11/13/19 11/13/19 Range/Units 09:20 09:20 WBC (4.0-10.0) x10^3/uL RBC (4.5-6.0) x10^6/uL Hgb (14.0-18.0) g/dL Hct (40.0-52.0) % MCV (78.0-93.0) fL MCH (26.0-32.0) pg MCHC (32.0-36.0) g/dL RDW Coeff of Shivani (10.0-15.0) % Plt Count (130-400) x10^3/uL Add Manual Diff Neutrophils % (Manual) (50-80) % Band Neutrophils % (0-6) % Lymphocytes % (Manual) (25-50) % Monocytes % (Manual) (2-11) % Metamyelocytes % (0) % Myelocytes % (0) % Platelet Estimate Giant Platelets Anisocytosis Sodium (136-145) mmol/L Potassium (3.5-5.1) mmol/L Chloride (98-107) mmol/L Carbon Dioxide (21-32) mmol/L Anion Gap (10-20) mmol/L BUN (7-18) mg/dL Creatinine (0.70-1.30) mg/dL Est Cr Clr Drug Dosing Estimated GFR (MDRD) Glucose (74-106) mg/dL Lactic Acid 1.7 (0.4-2.0) mmol/L Calcium (8.5-10.1) mg/dL Troponin I < 0.017 (<=0.056) ng/mL Urine Color (YELLOW) Urine Appearance (CLEAR) Urine pH (5.0-8.0) Ur Specific [place] Urine Protein (NEGATIVE) mg/dL Urine Glucose (UA) (NEGATIVE) mg/dL Urine Ketones (NEGATIVE) mg/dL Urine Occult Blood (NEGATIVE) Urine Nitrite (NEGATIVE) Urine Bilirubin (NEGATIVE) Urine Urobilinogen (0.2) EU/dL Ur Leukocyte Esterase (NEGATIVE) Urine RBC (NOT SEEN) /HPF Urine WBC (NOT SEEN) /HPF Ur Squamous Epith Cells (NEGATIVE) /HPF Amorphous Sediment Urine Bacteria (NEGATIVE) /HPF Urine Mucus (NEGATIVE) /LPF Meds: Medications Discontinued Medications Generic Name Dose Route Start Last Admin Trade Name Sabra PRN Reason Stop Dose Admin Cephalexin 500 mg 11/13/19 09:03 11/13/19 09:13 Keflex PO 11/13/19 09:04 500 mg ONETIME ONE Administration Phenazopyridine HCl 95 mg 11/13/19 09:03 11/13/19 09:14 Urinary Pain Relief PO 11/13/19 09:04 95 mg NOW STA Administration - Re-Assessments/Exams Free Text/Narrative Re-Assessment/Exam: 11/13/19 12:29 His urine is clearly infectious. We will culture his urine. His creat is at baseline. No signs of sepsis. WBC normal and lactic normal as well. Cephalexin 1 tablet now and pyridium. [facility]. Departure - Departure Time of Disposition: 10:02 Disposition: Home, Self-Care 01 Clinical Impression: UTI, Urinary tract infectious disease - Discharge Information Referrals: Navya Emmanuel DO [Primary Care Provider] - Forms: ED Department Discharge Additional Instructions: PUsh oral fluids. Continue with previous therapies. Cephalexin 500mg, 1 tab by mouth 4 times a day for the next 7days. Recheck PRN. Update PCP of the current UTI. Sepsis Event Note (ED) - Evaluation Sepsis Screening Result: No Definite Risk - Focused Exam Vital Signs: Vital Signs Temp Pulse Resp BP Pulse Ox 11/13/19 08:20 97.7 F 103 H 20 148/83 H 95 - My Orders Last 24 Hours: My Active Orders 11/13/19 07:30 CULTURE URINE [RM] Stat 11/13/19 09:21 EKG Documentation Completion [RC] STAT - Assessment/Plan Last 24 Hours: My Active Orders 11/13/19 07:30 CULTURE URINE [RM] Stat 11/13/19 09:21 EKG Documentation Completion [RC] STAT Assessment:: UTI Chronic Renal Failure. Plan: PUsh oral fluids. Continue with previous therapies. Cephalexin 500mg, 1 tab by mouth 4 times a day for the next 7days. Recheck PRN. Update PCP of the current UTI.
[2019-11-13 09:52] LABS: CHLORIDE,CL 102 mmol/L (98-107); SODIUM,NA 133 mmol/L (136-145)
[2019-11-13 09:53] LABS: ANION GAP 15.7 mmol/L (10-20)
== END 2019-11-13 10:15 | disposition home or self-care (01) ==
LOC: VM.ED 08:16
DX: N39.0 Urinary tract infection, site not specified (principal); I25.10 Atherosclerotic heart disease of native coronary artery without angina pectoris; I12.9 Hypertensive chronic kidney disease with stage 1 through stage 4 chronic kidney disease, or unspecified chronic kidney disease; E11.22 Type 2 diabetes mellitus with diabetic chronic kidney disease; N18.3 Chronic kidney disease, stage 3 (moderate); F32.9 Major depressive disorder, single episode, unspecified; E66.9 Obesity, unspecified; Z79.82 Long term (current) use of aspirin; Z79.4 Long term (current) use of insulin; Z79.899 Other long term (current) drug therapy; Z88.6 Allergy status to analgesic agent; Z88.8 Allergy status to other drugs, medicaments and biological substances
CPT/HCPCS: 36415; 80048; 81001; 83605; 84484; 85025; 87086; 93005; 99283; 99285; A9270

== ENCOUNTER 2020-04-08 09:35 | Emergency (ER) | payer MEDICARE, MEDICAID ==
[2020-04-08] MEDS ORDERED: Lidocaine 2% HCl 11 ML Jelly Filled Syringe TOP ONE (10:23)
--- NOTE | 2020-04-08 10:38 | EDM.PDOC ---
ED HPI GENERAL MEDICAL PROBLEM - General Chief Complaint: Genitourinary Problem Time Seen by Provider: 04/08/20 09:41 Source of Information: Reports: Patient, Retirement Records - History of Present Illness INITIAL COMMENTS - FREE TEXT/NARRATIVE: [place] is an 85 y/o male who [facility] for blood clots coming from his urethra. He was up at 0200 and voided normally, then at 0400 his Attends was full of clots, this happened again around 0800 and [facility] staff sent him here to be seen. He denies any pain and has overall felt well. He denies ever having this happen before. He has had UTIs in the past. No fevers. Neck Pain Score (Numeric/FACES): 1 - Related Data Allergies Allergy/AdvReac Type Severity Reaction Status Date / Time aspirin Allergy Other Verified 04/08/20 09:53 naproxen [From Aleve] Allergy Difficulty Verified 04/08/20 09:53 Breathing Home Meds: Home Meds carvediloL [Coreg] 6.25 mg PO BID 08/06/17 [History] Aspirin [Halfprin] 81 mg PO DAILY 03/30/18 [History] Furosemide [Lasix] 20 mg PO BID 03/30/18 [History] Insulin Glarg,Human.Rec.Analog [Lantus Solostar] 60 units SUBCUT DAILY 03/30/18 [History] Sertraline [Zoloft] 100 mg PO DAILY 03/30/18 [History] Spironolactone 50 mg PO DAILY 03/30/18 [History] Insulin Aspart [NovoLOG] 10 unit SQ TIDMEALS 03/31/18 [History] Acetaminophen 650 mg PO TID 04/17/19 [History] Acetaminophen [Tylenol] 650 mg PO TID 11/13/19 [History] Zinc Oxide [Desitin Creamy Diaper Rash Crm] 1 appful TOP BID 11/13/19 [History] traMADol [Ultram] 50 mg PO BID 11/13/19 [History] Past Medical History HEENT History: Reports: Other (See Below) Other HEENT History: wears glasses Cardiovascular History: Reports: CAD, High Cholesterol, Hypertension Genitourinary History: Reports: Renal Disease, Other (See Below) Other Genitourinary History: CKD III Psychiatric History: Reports: Dementia, Depression Endocrine/Metabolic History: Reports: Diabetes, Type II, Obesity/BMI 30+ Oncologic (Cancer) History: Reports: Squamous Cell Carcinoma Dermatologic History: Reports: Other (See Below) Other Dermatologic History: diabetic ulcers - Past Surgical History Male Surgical History: Reports: None Social & Family History - Family History Family Medical History: No Pertinent Family History - Tobacco Use Tobacco Use Status *Q: Unknown Ever Used Tobacco - Caffeine Use Caffeine Use: Reports: Coffee Review of Systems - Review of Systems Review Of Systems: See Below Constitutional: Reports: No Symptoms Eyes: Reports: No Symptoms Ears: Reports: No Symptoms Nose: Reports: No Symptoms Mouth/Throat: Reports: No Symptoms Respiratory: Reports: No Symptoms Cardiovascular: Reports: No Symptoms GI/Abdominal: Reports: No Symptoms Genitourinary: Reports: Hematuria, Other (Blood clots noted in urethra) Musculoskeletal: Reports: No Symptoms Skin: Reports: No Symptoms Neurological: Reports: No Symptoms Psychiatric: Reports: No Symptoms ED EXAM, GENERAL - Physical Exam Exam: See Below Exam Limited By: No Limitations General Appearance: Alert, WD/WN, No Apparent Distress (Elderly male, pleasant.) Eye Exam: Bilateral Eye: PERRL Ears: Hearing Grossly Normal Nose: Normal Inspection Throat/Mouth: Normal Inspection, Normal Voice Head: Atraumatic, Normocephalic Neck: Normal Inspection Respiratory/Chest: No Respiratory Distress, Lungs Clear, Chest Non-Tender Cardiovascular: Normal Peripheral Pulses, Regular Rate, Rhythm GI/Abdominal: Normal Bowel Sounds, Soft, Non-Tender, No Distention (Male) Exam: Urethral Discharge (note about 50 ml of blood clots in Attends on exam, foreskin is tight and unable to be retracted) Rectal (Males) Exam: Deferred Back Exam: Normal Inspection Extremities: Normal Inspection Neurological: Alert, Oriented, CN II-XII Intact, Normal Cognition Psychiatric: Normal Affect, Normal Mood Skin Exam: Warm, Dry, Intact, Normal Color Lymphatic: No Adenopathy Course - Vital Signs Text/Narrative:: 0941 The patient was seen by the DIRECTOR OF PUBLIC WORKS. Labs ordered. RN attempted to cath patient, but unable. Noted more blood clots coming from urethra. 1020 Urojet Lidocaine placed and [employer]OR OF [employer] assisted RN with slater placement. Noted very tight foreskin that could not be retracted. Slater was placed and dark bloody urine noted in slater drainage system. Irrigated with 500ml of saline and urine did lighten up, but then started to get dark, wilfredo blood colored in the tubing. 1100 Labs reviewed. Note Hgb=11.3, Hct=35.5. Eysmkw=201, Potassium=5.2 (decreased from 5.7 on 11-13-19), BUN=45, Home Health Aide=2.1. Ceftriaxone 1 gm IVP ordered to treat UTI. Urine cx pending. 1114 [facility] contacted and case presented to ER physician, Dr Conrad. Patient accepted for transfer to [facility]; awaiting room assignment. Will plan on [facility] transporting the patient to [place]. Patient remained stable until departing the ER with EMS. Last Recorded V/S: Last Vital Signs Temp 36.2 C 04/08/20 09:35 Pulse 92 04/08/20 09:35 Resp 18 04/08/20 09:35 BP 108/63 04/08/20 09:35 Pulse Ox 94 L 04/08/20 09:35 - Orders/Labs/Meds Orders: Active Orders 24 hr Category Date Time Status Bladder Irrigation [RC] BID Care 04/08/20 10:45 Active Slater Catheter Insertion [Insert Urinary Catheter] [OM. Care 04/08/20 10:45 Ordered PC] Q24H Urinary Catheter Assessment [RC] ASDIRECTED Care 04/08/20 10:45 Active CULTURE URINE [RM] Stat Lab 04/08/20 10:37 Received Labs: Laboratory Tests 04/08/20 04/08/20 04/08/20 Range/Units 10:17 10:17 10:37 WBC 6.8 (4.0-10.0) x10^3/uL RBC 4.03 L (4.5-6.0) x10^6/uL Hgb 11.3 L (14.0-18.0) g/dL Hct 35.5 L (40.0-52.0) % MCV 88.1 (78.0-93.0) fL MCH 28.0 (26.0-32.0) pg MCHC 31.8 L (32.0-36.0) g/dL RDW Coeff of Shivani 15.3 H (10.0-15.0) % Plt Count 149 (130-400) x10^3/uL Add Manual Diff Yes Neutrophils % (Manual) 63 (50-80) % Band Neutrophils % 1 (0-6) % Lymphocytes % (Manual) 27 (25-50) % Monocytes % (Manual) 7 (2-11) % Eosinophils % (Manual) 2 (0-4) % Platelet Estimate Adequate Spherocytes 1+ slight H Sodium 133 L (136-145) mmol/L Potassium 5.2 H (3.5-5.1) mmol/L Chloride 102 (98-107) mmol/L Carbon Dioxide 22 (21-32) mmol/L Anion Gap 14.2 (10-20) mmol/L BUN 45 H (7-18) mg/dL Creatinine 2.1 H (0.70-1.30) mg/dL Est Cr Clr Drug Dosing TNP Estimated GFR (MDRD) 30 Glucose 288 H (74-106) mg/dL Calcium 8.4 L (8.5-10.1) mg/dL Corrected Calcium 9.12 (8.5-10.1) mg/dL Total Bilirubin 0.2 (0.2-1.0) mg/dL AST 10 L (15-37) U/L ALT 15 L (16-63) U/L Alkaline Phosphatase 77 (46-116) U/L Total Protein 6.7 (6.4-8.2) g/dL Albumin 3.1 L (3.4-5.0) g/dL Globulin 3.6 Albumin/Globulin Ratio 0.86 Urine Color Red H (YELLOW) Urine Appearance Turbid H (CLEAR) Urine pH 8.5 H (5.0-8.0) Ur Specific [place] 1.010 Urine Protein >=300 H (NEGATIVE) mg/dL Urine Glucose (UA) 100 H (NEGATIVE) mg/dL Urine Ketones 40 H (NEGATIVE) mg/dL Urine Occult Blood Large H (NEGATIVE) Urine Nitrite Positive H (NEGATIVE) Urine Bilirubin Large H (NEGATIVE) Urine Urobilinogen 4.0 H (0.2) EU/dL Ur Leukocyte Esterase Large H (NEGATIVE) Urine RBC Packed H (NOT SEEN) /HPF Urine WBC Not seen (NOT SEEN) /HPF Ur Squamous Epith Cells Not seen (NEGATIVE) /HPF Amorphous Sediment Not seen Urine Bacteria Not seen (NEGATIVE) /HPF Urine Mucus Not seen (NEGATIVE) /LPF Meds: Medications Discontinued Medications Generic Name Dose Route Start Last Admin Trade Name Freq PRN Reason Stop Dose Admin Ceftriaxone Sodium 1 gm 04/08/20 11:17 04/08/20 11:29 Rocephin IVPUSH 04/08/20 11:18 1 gm STAT ONE Administration Lidocaine HCl 11 ml 04/08/20 10:23 Glydo TOP 04/08/20 10:24 ONETIME ONE Departure - Departure Time of Disposition: 11:25 Disposition: DC/Tfer to Acute Hospital 02 Condition: Good Clinical Impression: Gross hematuria UTI (urinary tract infection) Qualifiers: Urinary tract infection type: site unspecified Hematuria presence: with hematuria Qualified Code(s): N39.0 - Urinary tract infection, site not specified; R31.9 - Hematuria, unspecified - Discharge Information Referrals: Navya Emmanuel DO [Primary Care Provider] - Forms: ED Department Discharge, ED Return to Work/School Form, Interfacility Transfer EMTALA Additional Instructions: -Transfer to [facility] via [facility] Sepsis Event Note (ED) - Evaluation Sepsis Screening Result: No Definite Risk - Focused Exam Vital Signs: Vital Signs Temp Pulse Resp BP Pulse Ox 04/08/20 09:35 36.2 C 92 18 108/63 94 L - My Orders Last 24 Hours: My Active Orders 04/08/20 10:37 CULTURE URINE [RM] Stat 04/08/20 10:45 Bladder Irrigation [RC] BID Slater Catheter Insertion [Insert Urinary Catheter] [OM.PC] Q24H Urinary Catheter Assessment [RC] ASDIRECTED - Assessment/Plan Last 24 Hours: My Active Orders 04/08/20 10:37 CULTURE URINE [RM] Stat 04/08/20 10:45 Bladder Irrigation [RC] BID Slater Catheter Insertion [Insert Urinary Catheter] [OM.PC] Q24H Urinary Catheter Assessment [RC] ASDIRECTED
[2020-04-08 10:47] LABS: CHLORIDE,CL 102 mmol/L (98-107); SODIUM,NA 133 mmol/L (136-145)
[2020-04-08 10:58] LABS: ANION GAP 14.2 mmol/L (10-20)
[2020-04-08] MEDS ORDERED: cefTRIAXone 1 GM Vial IVPUSH ONE (11:17)
== END 2020-04-08 12:52 | disposition short-term general hospital (02) ==
LOC: VM.ED 09:35
DX: N39.0 Urinary tract infection, site not specified (principal); R31.0 Gross hematuria; I12.9 Hypertensive chronic kidney disease with stage 1 through stage 4 chronic kidney disease, or unspecified chronic kidney disease; E11.22 Type 2 diabetes mellitus with diabetic chronic kidney disease; N18.30 Chronic kidney disease, stage 3 unspecified; E66.9 Obesity, unspecified; I25.10 Atherosclerotic heart disease of native coronary artery without angina pectoris; F32.9 Major depressive disorder, single episode, unspecified; F03.90 Unspecified dementia, unspecified severity, without behavioral disturbance, psychotic disturbance, mood disturbance, and anxiety; Z88.8 Allergy status to other drugs, medicaments and biological substances; Z79.82 Long term (current) use of aspirin; Z79.4 Long term (current) use of insulin; Z79.899 Other long term (current) drug therapy
CPT/HCPCS: 36415; 51702; 80053; 81001; 85025; 87086; 87088; 96374; 99284; 99285; A9270; J0696

== ENCOUNTER 2020-04-13 17:16 | Emergency (ER) | payer MEDICARE, MEDICAID ==
[2020-04-13] MEDS: diphenhydrAMINE 25 MG Cap PO ONE (18:18)
[2020-04-13] MEDS: Hydrocortisone 1% Crm 30 GM Tube TOP ONE (18:18)
[2020-04-13] MEDS: Famotidine 20 MG Tab PO ONE (18:19)
--- NOTE | 2020-04-13 18:19 | EDM.PDOC ---
ED HPI GENERAL MEDICAL PROBLEM - General Time Seen by Provider: 04/13/20 18:00 Source of Information: Reports: Patient, [facility] Records, Old Records, RN, RN Notes Reviewed History Limitations: Reports: No Limitations - History of Present Illness INITIAL COMMENTS - FREE TEXT/NARRATIVE: Patient is an 85-year-old male who presents to the ER per [facility] ambulance service with complaint of clogged catheter, blood clots, as well as rash area to the right upper abdomen. Patient was transferred from the ER on 04/08/2020 with large amounts of clots coming from the penis. Patient was on vancomycin for MRSA of the urine, and records state possibility of neoplasm. Patient is being followed by urology. retirement records state patient has a sulfa allergy which is not listed on the medical records here nor at [facility]. Patient was discharged from [facility] today, vancomycin discontinued, and Bactrim was started. Nursing staff at the longterm did visit with his primary doctor about this, the Bactrim has since been discontinued and Macrobid started according to the records. Patient has no complaints of at this time. Onset: Today - Related Data Allergies Allergy/AdvReac Type Severity Reaction Status Date / Time aspirin Allergy Other Verified 04/13/20 18:12 naproxen [From Aleve] Allergy Difficulty Verified 04/13/20 18:12 Breathing Sulfa (Sulfonamide Allergy Hives Verified 04/13/20 18:12 Antibiotics) Home Meds: Home Meds carvediloL [Coreg] 6.25 mg PO BID 08/06/17 [History] Aspirin [Halfprin] 81 mg PO DAILY 03/30/18 [History] Furosemide [Lasix] 20 mg PO BID 03/30/18 [History] Insulin Glarg,Human.Rec.Analog [Lantus Solostar] 60 units SUBCUT DAILY 03/30/18 [History] Sertraline [Zoloft] 100 mg PO DAILY 03/30/18 [History] Spironolactone 50 mg PO DAILY 03/30/18 [History] Insulin Aspart [NovoLOG] 10 unit SQ TIDMEALS 03/31/18 [History] Acetaminophen 650 mg PO TID 04/17/19 [History] Acetaminophen [Tylenol] 650 mg PO TID 11/13/19 [History] Zinc Oxide [Desitin Creamy Diaper Rash Crm] 1 appful TOP BID 11/13/19 [History] traMADol [Ultram] 50 mg PO BID 11/13/19 [History] Past Medical History HEENT History: Reports: Other (See Below) Other HEENT History: wears glasses Cardiovascular History: Reports: CAD, High Cholesterol, Hypertension Genitourinary History: Reports: Renal Disease, Other (See Below) Other Genitourinary History: CKD III Psychiatric History: Reports: Dementia, Depression Endocrine/Metabolic History: Reports: Diabetes, Type II, Obesity/BMI 30+ Oncologic (Cancer) History: Reports: Squamous Cell Carcinoma Dermatologic History: Reports: Other (See Below) Other Dermatologic History: diabetic ulcers - Infectious Disease History Infectious Disease History: Reports: MRSA - Past Surgical History Male Surgical History: Reports: None Social & Family History - Family History Family Medical History: No Pertinent Family History - Caffeine Use Caffeine Use: Reports: Coffee ED ROS GENERAL - Review of Systems Review Of Systems: Comprehensive ROS is negative, except as noted in HPI. ED EXAM, GENERAL - Physical Exam Exam: See Below Exam Limited By: No Limitations General Appearance: Alert, WD/WN, No Apparent Distress Eye Exam: Bilateral Eye: EOMI, Normal Inspection Ears: Normal External Exam, Hearing Grossly Normal Nose: Normal Inspection Throat/Mouth: Normal Inspection, Normal Voice, No Airway Compromise Head: Atraumatic, Normocephalic Neck: Normal Inspection, Supple, Non-Tender, Full Range of Motion Respiratory/Chest: No Respiratory Distress, No Accessory Muscle Use, Chest Non- Tender, Decreased Breath Sounds Cardiovascular: Normal Peripheral Pulses, Regular Rate, Rhythm, No Edema, No Gallop, No JVD, No Murmur, No Rub Peripheral Pulses: 2+: Radial (L), Radial (R) GI/Abdominal: Normal Bowel Sounds, Soft, Non-Tender (Male) Exam: Deferred, Other (slater catheter present, drainging well, flushes well, no blood clots noted in tubing or bag. ) Rectal (Males) Exam: Deferred Back Exam: Normal Inspection, Decreased Range of Motion Neurological: Alert, Slow to Respond Psychiatric: Normal Affect, Normal Mood Skin Exam: Warm, Dry, Rash (area to right side of the abdomen 25cm x 13cm red, slightly raised, urticarial) Lymphatic: No Adenopathy Front/Back Body Diagram: 1 - Red rash, semi raised, urticarial Course - Orders/Labs/Meds Meds: Medications Discontinued Medications Generic Name Dose Route Start Last Admin Trade Name Sabra PRN Reason Stop Dose Admin Diphenhydramine HCl 25 mg 04/13/20 18:11 04/13/20 18:18 Benadryl PO 04/13/20 18:12 25 mg ONETIME ONE Administration Famotidine 20 mg 04/13/20 18:11 04/13/20 18:19 Pepcid PO 04/13/20 18:12 20 mg ONETIME ONE Administration Hydrocortisone 2 gm 04/13/20 18:13 04/13/20 18:18 Hydrocortisone 1% [facility] 04/13/20 18:14 1 dose ASDIRECTED ONE Administration - Re-Assessments/Exams Free Text/Narrative Re-Assessment/Exam: 04/13/20 18:21 Catheter flushes well with sterile water. Draining well, very minuscule clot noted in the bag, but otherwise no clots present. Departure - Departure Time of Disposition: 18:59 Disposition: [facility] Condition: Fair Clinical Impression: Allergic drug rash, UTI, Urinary tract infectious disease - Discharge Information *PRESCRIPTION DRUG MONITORING PROGRAM REVIEWED*: No *COPY OF PRESCRIPTION DRUG MONITORING REPORT IN PATIENT MAGGIE: No Referrals: Navya Emmanuel DO [Primary Care Provider] - Forms: ED Department Discharge Additional Instructions: Rash from drug reaction stop Bactrim and begin Macrobid as previously ordered by Dr. Rouse. May use Hydrocortisone 1% to the area on the abdomen 3x daily Follow up with primary care Follow up with urology
== END 2020-04-13 18:00 ==
LOC: VM.ED 17:16
DX: L50.0 Allergic urticaria (principal); N39.0 Urinary tract infection, site not specified; I25.10 Atherosclerotic heart disease of native coronary artery without angina pectoris; I12.9 Hypertensive chronic kidney disease with stage 1 through stage 4 chronic kidney disease, or unspecified chronic kidney disease; N18.30 Chronic kidney disease, stage 3 unspecified; F32.9 Major depressive disorder, single episode, unspecified; E11.22 Type 2 diabetes mellitus with diabetic chronic kidney disease; E66.9 Obesity, unspecified; F03.90 Unspecified dementia, unspecified severity, without behavioral disturbance, psychotic disturbance, mood disturbance, and anxiety; Z88.6 Allergy status to analgesic agent; Z88.8 Allergy status to other drugs, medicaments and biological substances; Z88.2 Allergy status to sulfonamides; Z79.899 Other long term (current) drug therapy; Z79.82 Long term (current) use of aspirin; Z79.4 Long term (current) use of insulin; T36.8X5A Adverse effect of other systemic antibiotics, initial encounter
CPT/HCPCS: 99283; A9270-GY

== ENCOUNTER 2021-02-22 08:54 | Emergency (ER) | payer MEDICARE, MEDICAID ==
[2021-02-22] MEDS ORDERED: Sodium Chloride 0.9% 10 ML Syringe FLUSH PRN (08:56)
[2021-02-22] MEDS ORDERED: Sodium Chloride 0.9% 1,000 ML IV ONE (08:56)
--- NOTE | 2021-02-22 09:23 | EDM.PDOC ---
ED HPI GENERAL MEDICAL PROBLEM - General Stated Complaint: sob, fatigue, feels unwell Time Seen by Provider: 02/22/21 08:55 Source of Information: Reports: Patient, EMS, [facility] Records, Old Records History Limitations: Reports: No Limitations - History of Present Illness INITIAL COMMENTS - FREE TEXT/NARRATIVE: Patient is a shelter resident that usually ambulates on his own. Yesterday he was well. Today he awoke, was not as " perky" as he normally is, had a low blood pressure of 80 systolic and sats of 84%. He is fully vaccinated against covid 19. No known sick contacts. blood sugar was 166. Did not eat, have morning meds or insulin. No fever. Patient states he just doesn't feel well. saline lock placed, 2 lpm nasal cannula placed due to hypoxia. Takes lasix, no lung problems Onset: Today, Sudden Location: Reports: Generalized - Related Data Allergies Allergy/AdvReac Type Severity Reaction Status Date / Time aspirin Allergy Other Verified 04/13/20 18:12 naproxen [From Aleve] Allergy Difficulty Verified 04/13/20 18:12 Breathing Sulfa (Sulfonamide Allergy Hives Verified 04/13/20 18:12 Antibiotics) Home Meds: Home Meds carvediloL [Coreg] 6.25 mg PO BID 08/06/17 [History] Aspirin [Halfprin] 81 mg PO DAILY 03/30/18 [History] Furosemide [Lasix] 20 mg PO BID 03/30/18 [History] Insulin Glarg,Human.Rec.Analog [Lantus Solostar] 60 units SUBCUT DAILY 03/30/18 [History] Sertraline [Zoloft] 100 mg PO DAILY 03/30/18 [History] Spironolactone 50 mg PO DAILY 03/30/18 [History] Insulin Aspart [NovoLOG] 10 unit SQ TIDMEALS 03/31/18 [History] Acetaminophen 650 mg PO TID 04/17/19 [History] Acetaminophen [Tylenol] 650 mg PO TID 11/13/19 [History] Zinc Oxide [Desitin Creamy Diaper Rash Crm] 1 appful TOP BID 11/13/19 [History] traMADol [Ultram] 50 mg PO BID 11/13/19 [History] Amoxicillin/Potassium Clav [Augmentin 875-125 Tablet] 1 each PO BID #20 tablet 02/22/21 [Rx] Apixaban [Eliquis] 2.5 mg PO BID #30 tablet 02/22/21 [Rx] predniSONE [Prednisone] 50 mg PO DAILY #4 tablet 02/22/21 [Rx] Past Medical History HEENT History: Reports: Other (See Below) Other HEENT History: wears glasses Cardiovascular History: Reports: CAD, High Cholesterol, Hypertension Genitourinary History: Reports: Renal Disease, Other (See Below) Other Genitourinary History: CKD III Psychiatric History: Reports: Dementia, Depression Endocrine/Metabolic History: Reports: Diabetes, Type II, Obesity/BMI 30+ Oncologic (Cancer) History: Reports: Squamous Cell Carcinoma Dermatologic History: Reports: Other (See Below) Other Dermatologic History: diabetic ulcers - Infectious Disease History Infectious Disease History: Reports: MRSA, Novel Coronavirus - Past Surgical History Male Surgical History: Reports: None Social & Family History - Family History Family Medical History: No Pertinent Family History - Caffeine Use Caffeine Use: Reports: Coffee ED ROS GENERAL - Review of Systems Review Of Systems: See Below Constitutional: Reports: Malaise, Weakness, Fatigue HEENT: Denies: Rhinitis, Sinus Problem, Throat Pain Respiratory: Reports: Shortness of Breath. Denies: Wheezing, Cough, Sputum, Hemoptysis Cardiovascular: Reports: Palpitations. Denies: Chest Pain, Claudication, Dyspnea on Exertion Endocrine: Reports: No Symptoms GI/Abdominal: Reports: No Symptoms : Reports: No Symptoms. Denies: Dysuria Musculoskeletal: Reports: No Symptoms Skin: Reports: No Symptoms Neurological: Reports: No Symptoms ED EXAM, GENERAL - Physical Exam Exam: See Below Exam Limited By: No Limitations General Appearance: Alert, WD/WN, No Apparent Distress Eye Exam: Bilateral Eye: EOMI, Normal Inspection, PERRL Ears: Normal External Exam, Normal Canal Nose: Normal Inspection Throat/Mouth: Normal Inspection, Normal Lips, Normal Teeth, Other (dry mucous membranes) Head: Atraumatic Neck: Normal Inspection Respiratory/Chest: Decreased Breath Sounds (bases, increased respiratory rate) Cardiovascular: Tachycardia GI/Abdominal: Normal Bowel Sounds, Soft, Non-Tender, No Organomegaly Extremities: Normal Inspection, Normal Range of Motion, Non-Tender, No Pedal Edema (dermis stasis changes) Neurological: Alert, Oriented #1 Interpretation EKG Date: 02/22/21 Time: 09:03 Rhythm: NSR Rate (Beats/Min): 129 QRS: LBBB (incomplete) ST-T: Other (non specific changes lateral leads) Course - Vital Signs Last Recorded V/S: Last Vital Signs Temp Pulse 125 H 02/22/21 11:33 Resp BP 132/62 02/22/21 11:33 Pulse Ox - Orders/Labs/Meds Orders: Active Orders 24 hr Category Date Time Status Blood Pressure Mgt: Sepsis [RC] Q15MX2 Care 02/22/21 08:57 Active Cardiac Monitoring [RC] CONTINUOUS Care 02/22/21 08:57 Active Insert Zuñiga Catheter [Insert Urinary Catheter] [OM.PC] Care 02/22/21 10:30 Ordered Q24H Overnight Pulse Oximetry [RC] Click to Edit Care 02/22/21 08:58 Active Oxygen Therapy, ED [RC] STAT Care 02/22/21 08:57 Active Urinary Catheter Assessment [RC] ASDIRECTED Care 02/22/21 10:19 Active CULTURE BLOOD [BC] Stat Lab 02/22/21 09:17 Received CULTURE BLOOD [BC] Stat Lab 02/22/21 09:22 Results UA W/MICROSCOPIC [URIN] Stat Lab 02/22/21 08:56 Ordered Sodium Chloride 0.9% [Normal Saline] 1,000 ml Med 02/22/21 10:15 Active IV ASDIRECTED Sodium Chloride 0.9% [Normal Saline] 1,000 ml Med 02/22/21 11:45 Active IV ASDIRECTED Sodium Chloride 0.9% [Saline Flush] Med 02/22/21 08:56 Active 10 ml FLUSH ASDIRECTED PRN Blood Culture x2 Reflex Set [OM.PC] Stat Oth 02/22/21 08:56 Ordered Pulse Oximetry Continuous Monitoring [OM.PC] Routine Oth 02/22/21 08:56 Ordered Saline Lock Insert [OM.PC] Stat Oth 02/22/21 08:56 Ordered Severe Sepsis Onset Time [OM.PC] Stat Oth 02/22/21 08:56 Ordered Medication Orders Sodium Chloride (Normal Saline) 1,000 mls @ 999 mls/hr IV ASDIRECTED [facility] Last Admin: 02/22/21 10:06 Dose: 999 mls/hr Documented by: PRETTY Sodium Chloride (Normal Saline) 1,000 mls @ 100 mls/hr IV ASDIRECTED DIONISIO Sodium Chloride (Sodium Chloride 0.9% 10 Ml Syringe) 10 ml FLUSH ASDIRECTED PRN PRN Reason: Keep Vein Open Labs: Laboratory Tests 02/22/21 02/22/21 02/22/21 Range/Units 09:03 09:05 09:17 WBC 7.5 (4.0-10.0) x10^3/uL RBC 4.41 L (4.5-6.0) x10^6/uL Hgb 12.4 L (14.0-18.0) g/dL Hct 39.7 L (40.0-52.0) % MCV 90.0 (78.0-93.0) fL MCH 28.1 (26.0-32.0) pg MCHC 31.2 L (32.0-36.0) g/dL RDW Coeff of Shivani 15.6 H (10.0-15.0) % Plt Count 150 (130-400) x10^3/uL Add Manual Diff Yes Neutrophils % (Manual) 65 (50-80) % Band Neutrophils % 3 (0-6) % Lymphocytes % (Manual) 24 L (25-50) % Monocytes % (Manual) 4 (2-11) % Eosinophils % (Manual) 1 (0-4) % Metamyelocytes % 1 H (0) % Myelocytes % 2 H (0) % Immature Gran # 0.23 H (0.00-0.07) X10^3/Ul Absolute Neutrophils 5.1 (1.8-7.7) x10^3/uL Lymphocytes # (Manual) 1.8 (1.0-4.8) x10^3/uL Monocytes # (Manual) 0.3 (0.0-0.8) x10^3/uL Eosinophils # (Manual) 0.1 (0.0-0.5) x10^3/uL Platelet Estimate Adequate Anisocytosis 1+ slight H PT (9.9-12.5) SEC INR (2.0-3.5) D-Dimer, Quantitative (<=0.58) mg/LFEU POC ABG pH (7.35-7.45) pH POC ABG pCO2 (35-48) mmHg POC ABG pO2 (83-108) mmHg POC ABG HCO3 (21-28) mmol/L POC ABG Total CO2 (22-29) mmol/L POC ABG O2 Sat (94-98) % POC ABG Base Excess ((-2)-3) mmol/L POC FiO2 Sodium (136-145) mmol/L Potassium (3.5-5.1) mmol/L Chloride (98-107) mmol/L Carbon Dioxide (21-32) mmol/L Anion Gap (5-15) mmol/L BUN (7-18) mg/dL Creatinine (0.70-1.30) mg/dL Est Cr Clr Drug Dosing Estimated GFR (MDRD) Glucose (70-99) mg/dL POC Glucose 130 H (70-99) mg/dL Lactic Acid (0.4-2.0) mmol/L Calcium (8.5-10.1) mg/dL Corrected Calcium (8.5-10.1) mg/dL Magnesium (1.8-2.4) mg/dL Total Bilirubin (0.2-1.0) mg/dL AST (15-37) U/L ALT (16-63) U/L Alkaline Phosphatase (46-116) U/L Troponin I High Sens (<=76) ng/L C-Reactive Protein (<=0.9) mg/dL NT-Pro-B Natriuret Pep (<=450) pg/mL Total Protein (6.4-8.2) g/dL Albumin (3.4-5.0) g/dL Globulin Albumin/Globulin Ratio SARS CoV-2 RNA Rapid MARICRUZ Negative (NEGATIVE) 02/22/21 02/22/21 02/22/21 Range/Units 09:17 09:17 09:17 WBC (4.0-10.0) x10^3/uL RBC (4.5-6.0) x10^6/uL Hgb (14.0-18.0) g/dL Hct (40.0-52.0) % MCV (78.0-93.0) fL MCH (26.0-32.0) pg MCHC (32.0-36.0) g/dL RDW Coeff of Shivani (10.0-15.0) % Plt Count (130-400) x10^3/uL Add Manual Diff Neutrophils % (Manual) (50-80) % Band Neutrophils % (0-6) % Lymphocytes % (Manual) (25-50) % Monocytes % (Manual) (2-11) % Eosinophils % (Manual) (0-4) % Metamyelocytes % (0) % Myelocytes % (0) % Immature Gran # (0.00-0.07) X10^3/Ul Absolute Neutrophils (1.8-7.7) x10^3/uL Lymphocytes # (Manual) (1.0-4.8) x10^3/uL Monocytes # (Manual) (0.0-0.8) x10^3/uL Eosinophils # (Manual) (0.0-0.5) x10^3/uL Platelet Estimate Anisocytosis PT 11.6 (9.9-12.5) SEC INR 1.0 L (2.0-3.5) D-Dimer, Quantitative (<=0.58) mg/LFEU POC ABG pH (7.35-7.45) pH POC ABG pCO2 (35-48) mmHg POC ABG pO2 (83-108) mmHg POC ABG HCO3 (21-28) mmol/L POC ABG Total CO2 (22-29) mmol/L POC ABG O2 Sat (94-98) % POC ABG Base Excess ((-2)-3) mmol/L POC FiO2 Sodium 139 (136-145) mmol/L Potassium 5.6 H (3.5-5.1) mmol/L Chloride 107 (98-107) mmol/L Carbon Dioxide 20 L (21-32) mmol/L Anion Gap 17.6 H (5-15) mmol/L BUN 43 H (7-18) mg/dL Creatinine 2.3 H (0.70-1.30) mg/dL Est Cr Clr Drug Dosing TNP Estimated GFR (MDRD) 27 Glucose 146 H (70-99) mg/dL POC Glucose (70-99) mg/dL Lactic Acid 3.1 H* (0.4-2.0) mmol/L Calcium 8.6 (8.5-10.1) mg/dL Corrected Calcium 9.2 (8.5-10.1) mg/dL Magnesium (1.8-2.4) mg/dL Total Bilirubin 0.3 (0.2-1.0) mg/dL AST 11 L (15-37) U/L ALT 10 L (16-63) U/L Alkaline Phosphatase 79 (46-116) U/L Troponin I High Sens 6 (<=76) ng/L C-Reactive Protein 2.1 H (<=0.9) mg/dL NT-Pro-B Natriuret Pep 947 H (<=450) pg/mL Total Protein 6.6 (6.4-8.2) g/dL Albumin 3.3 L (3.4-5.0) g/dL Globulin 3.3 Albumin/Globulin Ratio 1.00 SARS CoV-2 RNA Rapid MARICRUZ (NEGATIVE) 02/22/21 02/22/21 02/22/21 Range/Units 09:17 09:17 09:33 WBC (4.0-10.0) x10^3/uL RBC (4.5-6.0) x10^6/uL Hgb (14.0-18.0) g/dL Hct (40.0-52.0) % MCV (78.0-93.0) fL MCH (26.0-32.0) pg MCHC (32.0-36.0) g/dL RDW Coeff of Shivani (10.0-15.0) % Plt Count (130-400) x10^3/uL Add Manual Diff Neutrophils % (Manual) (50-80) % Band Neutrophils % (0-6) % Lymphocytes % (Manual) (25-50) % Monocytes % (Manual) (2-11) % Eosinophils % (Manual) (0-4) % Metamyelocytes % (0) % Myelocytes % (0) % Immature Gran # (0.00-0.07) X10^3/Ul Absolute Neutrophils (1.8-7.7) x10^3/uL Lymphocytes # (Manual) (1.0-4.8) x10^3/uL Monocytes # (Manual) (0.0-0.8) x10^3/uL Eosinophils # (Manual) (0.0-0.5) x10^3/uL Platelet Estimate Anisocytosis PT (9.9-12.5) SEC INR (2.0-3.5) D-Dimer, Quantitative 1.48 H (<=0.58) mg/LFEU POC ABG pH 7.38 (7.35-7.45) pH POC ABG pCO2 31 L (35-48) mmHg POC ABG pO2 65 L (83-108) mmHg POC ABG HCO3 18.4 L (21-28) mmol/L POC ABG Total CO2 19.2 L (22-29) mmol/L POC ABG O2 Sat 92.3 L (94-98) % POC ABG Base Excess -7 L ((-2)-3) mmol/L POC FiO2 28 Sodium (136-145) mmol/L Potassium (3.5-5.1) mmol/L Chloride (98-107) mmol/L Carbon Dioxide (21-32) mmol/L Anion Gap (5-15) mmol/L BUN (7-18) mg/dL Creatinine (0.70-1.30) mg/dL Est Cr Clr Drug Dosing Estimated GFR (MDRD) Glucose (70-99) mg/dL POC Glucose (70-99) mg/dL Lactic Acid (0.4-2.0) mmol/L Calcium (8.5-10.1) mg/dL Corrected Calcium (8.5-10.1) mg/dL Magnesium 1.8 (1.8-2.4) mg/dL Total Bilirubin (0.2-1.0) mg/dL AST (15-37) U/L ALT (16-63) U/L Alkaline Phosphatase (46-116) U/L Troponin I High Sens (<=76) ng/L C-Reactive Protein (<=0.9) mg/dL NT-Pro-B Natriuret Pep (<=450) pg/mL Total Protein (6.4-8.2) g/dL Albumin (3.4-5.0) g/dL Globulin Albumin/Globulin Ratio SARS CoV-2 RNA Rapid MARICRUZ (NEGATIVE) 02/22/21 Range/Units 12:47 WBC (4.0-10.0) x10^3/uL RBC (4.5-6.0) x10^6/uL Hgb (14.0-18.0) g/dL Hct (40.0-52.0) % MCV (78.0-93.0) fL MCH (26.0-32.0) pg MCHC (32.0-36.0) g/dL RDW Coeff of Shivani (10.0-15.0) % Plt Count (130-400) x10^3/uL Add Manual Diff Neutrophils % (Manual) (50-80) % Band Neutrophils % (0-6) % Lymphocytes % (Manual) (25-50) % Monocytes % (Manual) (2-11) % Eosinophils % (Manual) (0-4) % Metamyelocytes % (0) % Myelocytes % (0) % Immature Gran # (0.00-0.07) X10^3/Ul Absolute Neutrophils (1.8-7.7) x10^3/uL Lymphocytes # (Manual) (1.0-4.8) x10^3/uL Monocytes # (Manual) (0.0-0.8) x10^3/uL Eosinophils # (Manual) (0.0-0.5) x10^3/uL Platelet Estimate Anisocytosis PT (9.9-12.5) SEC INR (2.0-3.5) D-Dimer, Quantitative (<=0.58) mg/LFEU POC ABG pH (7.35-7.45) pH POC ABG pCO2 (35-48) mmHg POC ABG pO2 (83-108) mmHg POC ABG HCO3 (21-28) mmol/L POC ABG Total CO2 (22-29) mmol/L POC ABG O2 Sat (94-98) % POC ABG Base Excess ((-2)-3) mmol/L POC FiO2 Sodium (136-145) mmol/L Potassium (3.5-5.1) mmol/L Chloride (98-107) mmol/L Carbon Dioxide (21-32) mmol/L Anion Gap (5-15) mmol/L BUN (7-18) mg/dL Creatinine (0.70-1.30) mg/dL Est Cr Clr Drug Dosing Estimated GFR (MDRD) Glucose (70-99) mg/dL POC Glucose (70-99) mg/dL Lactic Acid 1.4 (0.4-2.0) mmol/L Calcium (8.5-10.1) mg/dL Corrected Calcium (8.5-10.1) mg/dL Magnesium (1.8-2.4) mg/dL Total Bilirubin (0.2-1.0) mg/dL AST (15-37) U/L ALT (16-63) U/L Alkaline Phosphatase (46-116) U/L Troponin I High Sens (<=76) ng/L C-Reactive Protein (<=0.9) mg/dL NT-Pro-B Natriuret Pep (<=450) pg/mL Total Protein (6.4-8.2) g/dL Albumin (3.4-5.0) g/dL Globulin Albumin/Globulin Ratio SARS CoV-2 RNA Rapid MARICRUZ (NEGATIVE) Meds: Medications Generic Name Dose Route Start Last Admin Trade Name Freq PRN Reason Stop Dose Admin Sodium Chloride 1,000 mls @ 999 mls/hr 02/22/21 10:15 02/22/21 10:06 Normal Saline IV 999 mls/hr ASDIRECTED DIONISIO Administration Sodium Chloride 1,000 mls @ 100 mls/hr 02/22/21 11:45 Normal Saline IV ASDIRECTED DIONISIO Sodium Chloride 10 ml 02/22/21 08:56 Sodium Chloride 0.9% 10 Ml Syringe FLUSH ASDIRECTED PRN Keep Vein Open Discontinued Medications Generic Name Dose Route Start Last Admin Trade Name Freq PRN Reason Stop Dose Admin Apixaban 2.5 mg 02/22/21 14:33 Apixaban 2.5 Mg Tab PO 02/22/21 14:34 ONETIME ONE Carvedilol 6.25 mg 02/22/21 11:13 Carvedilol 6.25 Mg Tab PO 02/22/21 11:14 ONETIME ONE Carvedilol 6.25 mg 02/22/21 11:32 02/22/21 11:33 Carvedilol 3.125 Mg Tab PO 02/22/21 11:33 6.25 mg ONETIME ONE Administration Carvedilol Confirm 02/22/21 11:31 Carvedilol 3.125 Mg Tab Administered 02/22/21 11:32 Dose 6.25 mg .ROUTE .STK-MED ONE Ceftriaxone Sodium 1 gm 02/22/21 10:15 02/22/21 10:37 Ceftriaxone 1 Gm Vial IVPUSH 02/22/21 10:16 1 gm STAT ONE Administration Sodium Chloride 1,000 mls @ 999 mls/hr 02/22/21 08:56 02/22/21 09:10 Normal Saline IV 02/22/21 09:56 999 mls/hr BOLUS ONE Administration Protocol Azithromycin 500 mg/ Sodium 250 mls @ 250 mls/hr 02/22/21 10:15 02/22/21 10:37 Chloride IV 02/22/21 11:14 250 mls/hr STAT ONE Administration Methylprednisolone Sodium Succinate 125 mg 02/22/21 10:15 02/22/21 10:37 Methylprednisolone Sodium Succinate 125 Mg/2 Ml Sdv IVPUSH 02/22/21 10:16 125 mg ONETIME ONE Administration - Radiology Interpretation Free Text/Narrative:: chest x-ray mild chf, no other changes. see report ct abdomen without contrast with significant retroperitoneal, mesenteric and iliac adenopathy, bilateral hydronerphyrosis likely from reflux, large prostate, left axillary lymph nodes, Impression probably lymphoma, significant bilateral hydornephrosis, probable bilateral ureter reflux, see report - Re-Assessments/Exams Free Text/Narrative Re-Assessment/Exam: 02/22/21 10:12 elevated lactic acid. second liter started. No source for infection. negative covid. Awaiting a urine. CT non contrast due to elevated craetinine. abdomen and pelvis looking for source of infection. Patient has no complaints. 90% when takes off oxygen. ddimer is elevated but unable to do PE protocol. will treat with lovenox. needs admission for hypoxia, respiratory failure. Will treat with azithromycin and rocephin, solu medrol 02/22/21 10:48 02/22/21 11:[address], given 6.25 of ceoreg, his usual dose. repeat lactic ordered. 02/22/21 14:38 better vitals, heart rate still 110. no signs of infection, unable to cath patient due to foreskin problems. Patient unable to follow directions for urinating in jug. discussed possible lymphoma diagnosis with patient and brother. Both deny wanting oncology referral. Patient lives in shelter. No pneumonia seen. lactic is normal; after fluids, iv steroid, antibiotics. Unable to PE scan due to renal function. Will treat for pe with 2.5mg eliquis bid. Has oxygen at the shelter Able to take PO meds. Beds are tight and patient has longterm, ability to monitor his oxygen, take his meds. Can return if worsening. Attempted to call PCP for follow up. Needs close follow up for recheck of renal function, decision to continue eliquis for possible PE> No swelling of the legs, doubtful help to ultrasound legs for DVT as an alternative. 02/22/21 14:43 EMS trasnfer to shelter Departure - Departure Time of Disposition: 14:18 Disposition: DC/Tfer to [facility] Condition: Fair Clinical Impression: Respiratory failure, DINESH (acute kidney injury), Elevated lactic acid level, Lymph node disorder - Discharge Information Prescriptions: Amoxicillin/Potassium Clav [Augmentin 875-125 Tablet] 1 each PO BID #20 tablet Apixaban [Eliquis] 2.5 mg PO BID #30 tablet predniSONE [Prednisone] 50 mg PO DAILY #4 tablet Instructions: Acute Kidney Injury, Adult, Hypoxia Referrals: Navya Emmanuel DO [Primary Care Provider] - Additional Instructions: Testing today reveled low oxygen, but no signs of pneumonia. You are started on eliquis 2.5 mg po bid for possibility of blood clots in lungs. You can not be scanned for this due to your kidney function. You were given 2 liters of fluid to normalize your lactic acid due to dehydration. You will need to be on oxygen at 2 lmp, take the steroids daily for the next four days and take the antibiotics until gone for bronchitis. You were found to have a large amount of enlargened lymph nodes in your abdomen that is concerning for possible lymphoma. This would need a referral to oncology and biopsy if you choose to pursue this. You were given a tablet of eliquis 2.5 mg, IV solu medrol 125 mg , IV rocephin 1 gram, IV azithromycin 500 mg. start oral medications tomorrow.; Follow up with PCP next week They can determine if you can have imaging to look for blood clots in the lungs or to continue the eliquis as treatment Sepsis Event Note (ED) - Focused Exam Vital Signs: Vital Signs Pulse BP 02/22/21 11:33 125 H 132/62 - My Orders Last 24 Hours: My Active Orders 02/22/21 08:56 UA W/MICROSCOPIC [URIN] Stat Sodium Chloride 0.9% [Saline Flush] 10 ml FLUSH ASDIRECTED PRN Blood Culture x2 Reflex Set [OM.PC] Stat Pulse Oximetry Continuous Monitoring [OM.PC] Routine Saline Lock Insert [OM.PC] Stat Severe Sepsis Onset Time [OM.PC] Stat 02/22/21 08:57 Blood Pressure Mgt: Sepsis [RC] Q15MX2 Cardiac Monitoring [RC] CONTINUOUS Oxygen Therapy, ED [RC] STAT 02/22/21 08:58 Overnight Pulse Oximetry [RC] Click to Edit 02/22/21 09:17 CULTURE BLOOD [BC] Stat 02/22/21 09:22 CULTURE BLOOD [BC] Stat 02/22/21 10:15 Sodium Chloride 0.9% [Normal Saline] 1,000 ml IV ASDIRECTED 02/22/21 10:19 Urinary Catheter Assessment [RC] ASDIRECTED 02/22/21 10:30 Insert Zuñiga Catheter [Insert Urinary Catheter] [OM.PC] Q24H 02/22/21 11:45 Sodium Chloride 0.9% [Normal Saline] 1,000 ml IV ASDIRECTED - Assessment/Plan Last 24 Hours: My Active Orders 02/22/21 08:56 UA W/MICROSCOPIC [URIN] Stat Sodium Chloride 0.9% [Saline Flush] 10 ml FLUSH ASDIRECTED PRN Blood Culture x2 Reflex Set [OM.PC] Stat Pulse Oximetry Continuous Monitoring [OM.PC] Routine Saline Lock Insert [OM.PC] Stat Severe Sepsis Onset Time [OM.PC] Stat 02/22/21 08:57 Blood Pressure Mgt: Sepsis [RC] Q15MX2 Cardiac Monitoring [RC] CONTINUOUS Oxygen Therapy, ED [RC] STAT 02/22/21 08:58 Overnight Pulse Oximetry [RC] Click to Edit 02/22/21 09:17 CULTURE BLOOD [BC] Stat 02/22/21 09:22 CULTURE BLOOD [BC] Stat 02/22/21 10:15 Sodium Chloride 0.9% [Normal Saline] 1,000 ml IV ASDIRECTED 02/22/21 10:19 Urinary Catheter Assessment [RC] ASDIRECTED 02/22/21 10:30 Insert Zuñiga Catheter [Insert Urinary Catheter] [OM.PC] Q24H 02/22/21 11:45 Sodium Chloride 0.9% [Normal Saline] 1,000 ml IV ASDIRECTED
[2021-02-22 09:36] LABS: PCO2 ARTERIAL,POC 31 mmHg (35-48)
[2021-02-22 10:02] LABS: CHLORIDE,CL 107 mmol/L (98-107); SODIUM,NA 139 mmol/L (136-145)
[2021-02-22 10:03] LABS: ANION GAP 17.6 mmol/L (5-15)
[2021-02-22] MEDS ORDERED: Azithromycin 500 MG in Sodium Chloride 0.9% 250 ML IV ONE (10:15)
[2021-02-22] MEDS ORDERED: cefTRIAXone 1 GM Vial IVPUSH ONE (10:15)
[2021-02-22] MEDS ORDERED: methylPREDNISolone Sodium Succinate 125 MG/2 ML SDV IVPUSH ONE (10:15)
[2021-02-22] MEDS ORDERED: Sodium Chloride 0.9% 1,000 ML IV SCH ×2 (10:15→11:45)
--- NOTE | 2021-02-22 10:34 | CR ---
[id number] RAD/RAD Chest PA or AP 1V EXAM: FRONTAL CHEST INDICATION: SHORTNESS OF BREATH. COMPARISON: August 06, 2017. DISCUSSION: Evaluation limited by low lung volumes. There is mild cardiomegaly with mild interstitial edema and possible small effusions. IMPRESSION: 1. Mild congestive heart failure. Kaushal Martell MD 02/22/21 1033 Thank you for allowing us to participate in the care of your patient.
[2021-02-22] MEDS ORDERED: Carvedilol 6.25 MG Tab PO ONE (11:13)
[2021-02-22] MEDS ORDERED: Carvedilol 3.125 MG Tab ONE (11:31)
[2021-02-22] MEDS ORDERED: Carvedilol 3.125 MG Tab PO ONE (11:32)
--- NOTE | 2021-02-22 13:19 | CT ---
[id number] CT/CT Abdomen Pelvis WO IV Exam: CT Abdomen Pelvis WO IV Clinical Data: ELEVATED LACTIC ACID COMPARISON: NO PREVIOUS SIMILAR EXAM IS AVAILABLE FINDINGS: Nonspecific left axillary lymph nodes are seen. There is significant splenomegaly. The liver and spleen show no focal abnormalities. Lack of IV contrast limits the study There is a small hiatal hernia There is no adrenal mass There is no aneurysm There is significant bilateral hydroureteronephrosis. 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
[2021-02-22] MEDS ORDERED: Apixaban 2.5 MG Tab PO ONE (14:33)
== END 2021-02-22 14:40 ==
LOC: VM.ED 08:54
DX: J96.91 Respiratory failure, unspecified with hypoxia (principal); N17.9 Acute kidney failure, unspecified; R74.02 Elevation of levels of lactic acid dehydrogenase [LDH]; I89.8 Other specified noninfective disorders of lymphatic vessels and lymph nodes; I25.10 Atherosclerotic heart disease of native coronary artery without angina pectoris; E78.00 Pure hypercholesterolemia, unspecified; E11.22 Type 2 diabetes mellitus with diabetic chronic kidney disease; I12.9 Hypertensive chronic kidney disease with stage 1 through stage 4 chronic kidney disease, or unspecified chronic kidney disease; N18.30 Chronic kidney disease, stage 3 unspecified; Z88.2 Allergy status to sulfonamides; Z88.8 Allergy status to other drugs, medicaments and biological substances; Z88.5 Allergy status to narcotic agent; Z79.4 Long term (current) use of insulin; Z79.899 Other long term (current) drug therapy; Z79.01 Long term (current) use of anticoagulants; Z20.822 Contact with and (suspected) exposure to COVID-19
CPT/HCPCS: 36415; 36600; 71045; 74176; 80053; 82803; 82947; 83605; 83735; 83880; 84484; 85025; 85379; 85610; 86140; 87040; 96365; 96375; 99285; A9270; J0456; J0696; J2930; J7030; J7050; U0002

== ENCOUNTER 2021-06-12 23:17 | Emergency (ER) | payer MEDICARE, MEDICAID ==
[2021-06-13 00:13] LABS: CHLORIDE,CL 102 mmol/L (98-107); SODIUM,NA 134 mmol/L (136-145)
[2021-06-13 00:14] LABS: ANION GAP 12.5 mmol/L (5-15)
[2021-06-13] MEDS ORDERED: cefTRIAXone 1 GM Vial IVPUSH ONE (00:42)
== END 2021-06-13 01:58 ==
LOC: VM.ED 23:17
DX: E11.649 Type 2 diabetes mellitus with hypoglycemia without coma (principal); N39.0 Urinary tract infection, site not specified; I25.10 Atherosclerotic heart disease of native coronary artery without angina pectoris; E78.00 Pure hypercholesterolemia, unspecified; E11.22 Type 2 diabetes mellitus with diabetic chronic kidney disease; I12.9 Hypertensive chronic kidney disease with stage 1 through stage 4 chronic kidney disease, or unspecified chronic kidney disease; N18.30 Chronic kidney disease, stage 3 unspecified; E66.9 Obesity, unspecified; Z68.30 Body mass index [BMI] 30.0-30.9, adult; Z88.5 Allergy status to narcotic agent; Z88.8 Allergy status to other drugs, medicaments and biological substances; Z88.2 Allergy status to sulfonamides; Z79.4 Long term (current) use of insulin; Z79.82 Long term (current) use of aspirin; Z79.899 Other long term (current) drug therapy
CPT/HCPCS: 36415; 80048; 81001; 82947; 83605; 85025; 86140; 87086; 87088; 87186; 96374; 99284; 99285-25; J0696

== ENCOUNTER 2021-08-28 04:18 | Inpatient (IN) | payer MEDICARE, MEDICAID ==
[2021-08-28] MEDS ORDERED: Sodium Chloride 0.9% 10 ML Syringe FLUSH PRN (04:37)
[2021-08-28 05:43] LABS: CHLORIDE,CL 100 mmol/L (98-107); SODIUM,NA 133 mmol/L (136-145)
[2021-08-28 05:46] LABS: ANION GAP 18.1 mmol/L (5-15)
[2021-08-28] MEDS ORDERED: Glucagon,Human Recombinant 1 MG Vial IM PRN (05:57)
[2021-08-28] MEDS ORDERED: 50% Dextrose in Water 50 ML Syringe IVPUSH PRN (05:57)
[2021-08-28] MEDS ORDERED: Insulin Regular, Human 100 Units/ML 3 ML Vial IVPUSH ONE (05:57)
[2021-08-28] MEDS ORDERED: 50% Dextrose in Water 50 ML Syringe IV PRN (05:58)
[2021-08-28] MEDS ORDERED: Calcium Chloride 10% 1 GM/10 ML Syringe IVPUSH ONE (06:00)
[2021-08-28] MEDS ORDERED: Sodium Chloride 0.9% 1,000 ML IV SCH ×3 (06:00→13:15)
[2021-08-28] MEDS ORDERED: cefTRIAXone 2 GM Vial IVPUSH ONE (06:01)
[2021-08-28] MEDS ORDERED: Ondansetron 4 MG/2 ML SDV IVPUSH ONE (06:34)
[2021-08-28 06:42] LABS: CORONAVIRUS COVID-19 NAA NEGATIVE (NEGATIVE)
[2021-08-28 06:43] LABS: RESPIRATORY SYNCYTIAL VIR NAA NEGATIVE (NEGATIVE)
[2021-08-28] MEDS ORDERED: Furosemide 40 MG/4 ML VIAL IV ONE (06:59)
[2021-08-28] MEDS ORDERED: Albuterol 0.083% 2.5 MG/3 ML Neb Soln NEB ONE (07:16)
[2021-08-28 08:29] LABS: ANION GAP 17.3 mmol/L (5-15)
[2021-08-28] MEDS ORDERED: Insulin Lispro 100 Units/ML 3 ML Vial SUBCUT SCH (09:15)
[2021-08-28] MEDS: Insulin Glarg,Human.Rec.Analog 100 Unit/ML SUBCUT SCH (10:00)
[2021-08-28 12:59] LABS: ANION GAP 18.5 mmol/L (5-15)
[2021-08-28] MEDS ORDERED: Sodium Chloride 0.9% 1,000 ML IV ONE (13:15)
[2021-08-28] MEDS ORDERED: Prochlorperazine 5 MG Tab PO PRN (19:07)
[2021-08-28] MEDS ORDERED: Atropine 1% Ophth Soln 5 ML BOTTLE SL PRN (19:07)
[2021-08-28] MEDS ORDERED: Ondansetron 4 MG/2 ML SDV IVPUSH PRN (19:17)
[2021-08-28] MEDS: LORazepam 2 MG/ML SDV IV PRN (21:18)
[2021-08-28] MEDS: Morphine 2 MG/ML SYRINGE IV PRN (21:19)
[2021-08-29] MEDS: Morphine 2 MG/ML SYRINGE IV PRN ×4 (00:29→11:56)
[2021-08-29] MEDS: LORazepam 2 MG/ML SDV IV PRN (04:18)
[2021-08-29] MEDS: Insulin Glarg,Human.Rec.Analog 100 Unit/ML SUBCUT SCH (08:05)
== END 2021-08-29 12:36 | disposition home or self-care (01) | DRG 683 ==
LOC: VM.ED 04:18 → VM.MS 07:40 → UNDODISIN 08-29 12:36
PROVIDERS: ADMIT Physician Assistant; ATTEND Physician Assistant
DX: N17.9 Acute kidney failure, unspecified (principal); N39.0 Urinary tract infection, site not specified; H54.7 Unspecified visual loss; G93.49 Other encephalopathy; E87.5 Hyperkalemia; E11.65 Type 2 diabetes mellitus with hyperglycemia; N18.30 Chronic kidney disease, stage 3 unspecified; N18.9 Chronic kidney disease, unspecified; I25.10 Atherosclerotic heart disease of native coronary artery without angina pectoris; E11.22 Type 2 diabetes mellitus with diabetic chronic kidney disease; Z85.828 Personal history of other malignant neoplasm of skin; Z86.16 Personal history of COVID-19; E78.00 Pure hypercholesterolemia, unspecified; I12.9 Hypertensive chronic kidney disease with stage 1 through stage 4 chronic kidney disease, or unspecified chronic kidney disease; F32.A Depression, unspecified; E66.9 Obesity, unspecified; Z20.822 Contact with and (suspected) exposure to COVID-19; F03.90 Unspecified dementia, unspecified severity, without behavioral disturbance, psychotic disturbance, mood disturbance, and anxiety; Z88.2 Allergy status to sulfonamides; Z88.8 Allergy status to other drugs, medicaments and biological substances; Z79.4 Long term (current) use of insulin; Z79.82 Long term (current) use of aspirin; Z79.899 Other long term (current) drug therapy; Z86.14 Personal history of Methicillin resistant Staphylococcus aureus infection; Z68.32 Body mass index [BMI] 32.0-32.9, adult; Z66 Do not resuscitate
CPT/HCPCS: 0241U; 36415; 51702; 74022; 80048; 80053; 80307; 81001; 82803; 82947; 83605; 83735; 83880; 84100; 84484; 85025; 85610; 85730; 86140; 87040; 87086; 87088; 87186; 93005; 94640; 96374; 96375; 99285-25; J0696; J1815-GY; J1940; J2060; J2270; J2405; J7030; J7613-GY